=== PATIENT | male | born 1965 | race Caucasian/White ===

== ENCOUNTER 2017-02-27 16:23 | Emergency (ER) | payer OTHER ==
[2017-02-27] MEDS ORDERED: LORAZEPAM 1 MG TABLET PO ONE (17:07)
[2017-02-27] MEDS ORDERED: LIDOCAINE 1% INJ (10 MG/ML) 10 ML MDV INJ ONE (17:07)
[2017-02-27] MEDS ORDERED: CEPHALEXIN 500 MG CAPSULE PO ONE (17:07)
[2017-02-27] MEDS ORDERED: BUPIVACAINE HCL 0.5 % INJ/PF 30 ML SDV INJ ONE (17:07)
--- NOTE | 2017-02-27 17:15 | ER Document Report ---
ED Wound - General Chief Complaint: Laceration Stated Complaint: LEFT HAND INJURY Mode of Arrival: Ambulatory Information source: Patient TRAVEL OUTSIDE OF THE [place] IN LAST 30 DAYS: No - HPI Patient complains to provider of: Laceration Notes: Patient arrives with complaints of index finger laceration. Patient states he was using a table saw when he accidentally nicked his left index fingertip on the sole. Bleeding is controlled. Tetanus is up-to-date. He denies any numbness tingling or weakness. He does complain of some mild nausea. States that on his way over here he had a syncopal episode in the car. He states that this is very normal for him. He has vasovagal syncope and passes out often with any sight of blood. He denies any chest pain or shortness of breath. He states that he does not need I workup regarding his syncopal episode on the way here as this is very normal for him. He states that he has to take the next just to have his blood drawn to not pass out. Patient denies any numbness or tingling. He complains of pain. He denies any other rashes. Pain is worse with touching the area and better when not. - Related Data Allergies/Adverse Reactions: erythromycin base Allergy (Verified 02/27/17 16:27) bee stings Allergy (Uncoded 02/27/17 16:27) Past Medical History - Social History Smoking Status: Never Smoker Chew tobacco use (# tins/day): No Frequency of alcohol use: Occasional Drug Abuse: None Family History: Reviewed & Not Pertinent Patient has suicidal ideation: No Patient has homicidal ideation: No - Past Medical History Cardiac Medical History: Reports: Hx Hypertension Renal/ Medical History: Denies: Hx Peritoneal Dialysis Surgical Hx: Negative - Immunizations Hx Diphtheria, Pertussis, Tetanus Vaccination: Yes - current Review of Systems - Review of Systems -: Yes All other systems reviewed and negative Physical Exam - Vital signs Vitals: Temp Pulse Resp BP Pulse Ox 97.4 F 73 23 H 149/85 H 98 02/27/17 16:29 02/27/17 16:29 02/27/17 16:29 02/27/17 16:29 02/27/17 16:29 - Notes Notes: GENERAL: alert, cooperative, nontoxic, no distress. HEAD: normocephalic, atraumatic EYES: conjunctiva pink without discharge, no external redness or swelling. EARS: no external swelling, no external redness NOSE: atraumatic, no external swelling MOUTH/THROAT: mucous membranes moist and pink NECK: soft, supple, full range of motion, no meningismus. CHEST: no distress, lungs clear and equal throughout. No wheezing, rales, rhonchi. CARDIAC: regular rate and rhythm, no murmur, normal capillary refill, normal pulses. BACK: full range of motion, no CVA tenderness. EXTREMITIES: Patient is noted to have a macerated type laceration to the tip of his left index finger with partial injury to the nail distally. No active bleeding. Normal cap refill and sensation distally. No redness or drainage. No foreign body. No flexor or extensor tendon laceration identified. NEURO: alert and oriented 3, no focal deficits, full range of motion of all extremities. PYSCH: appropriate mood, affect. Patient is cooperative. SKIN: pink, warm, dry, no rash. Course - Re-evaluation Re-evalutation: 02/27/17 19:35 Patient is nontoxic appearing with stable vitals. The patient sustained a laceration to the index finger of the left hand with a table saw. He is neurovascularly intact. There is no foreign body or tendon laceration. X-rays are negative. Patient had laceration repaired to the best of my ability. Patient will be discharged home on antibiotics, Ultram, with no follow-up next week. Follow-up in 10-12 days for suture removal. Follow up sooner for increased pain, fever, redness, drainage, any further concerns. The patient is noted to have elevated blood pressure during today's emergency department visit. The patient was informed of this finding. The patient was instructed that this may be related to pre-hypertension and requires further evaluation with a primary care provider. The patient has no hypertensive symptoms at this time. The patient's emergency department workup and current diagnosis were explained to the patient and or family. Follow-up instructions were provided. Medications if prescribed were discussed. Instructions for when to return to the emergency department including specific worrisome symptoms were discussed with the patient and/or family. - Vital Signs Vital signs: Temp Pulse Resp BP Pulse Ox 97.4 F 73 23 H 149/85 H 98 02/27/17 16:29 02/27/17 16:29 02/27/17 16:29 02/27/17 16:29 02/27/17 16:29 - Diagnostic Test Radiology reviewed: Image reviewed, Reports reviewed - Negative Procedures - Laceration/Wound Repair left index finger Wound length (cm): 2 Wound's Depth, Shape: Superficial, Linear, Irregular, Nail-avulsed Laceration pre-procedure: Sterile PPE donned, Sterile drapes applied Anesthetic type: 0.5% Bupivacaine Volume Anesthetic (mLs): 4 Wound explored: Clean, No foreign body removed Wound Repaired With: Sutures Suture Size/Type: 5:0, Nylon Number of Sutures: 4 Layer Closure?: No Post-procedure wound care: Sterile dressing applied Post-procedure NV exam normal: Yes Complications: No Discharge - Discharge Clinical Impression: Laceration of left index finger Condition: Stable Disposition: HOME, SELF-CARE Instructions: Laceration Care ([facility]) Additional Instructions: Take medications as prescribed. Clean wound twice a day with soap and water. Follow-up with or so Week for reevaluation. Follow-up in 10-12 days for suture removal. Follow-up sooner for increased pain, fever, redness, drainage, any further concerns. Your blood pressure was elevated during today's visit. Have this rechecked with your doctor. The medication you were prescribed today may cause drowsiness. Do not drive or operate heavy machinery while taking this medication. Prescriptions: Cephalexin [Cephalexin 500 MG Capsule] 1 cap PO QID #28 capsule Tramadol HCl [Ultram] 50 mg PO TID PRN #10 tablet PRN Reason: Forms: Elevated Blood Pressure Referrals: CUBA ZAVALA PA-C [Primary Care Provider] - Follow up as needed ERICA SPEARS MD [ACTIVE STAFF] - Follow up as needed
[2017-02-27] MEDS ORDERED: LIDOCAINE 1% INJ-PF (10 MG/ML) 30 ML SDV ONE (17:26)
[2017-02-27] MEDS ORDERED: ONDANSETRON 4 MG TAB.RAPDIS PO ONE (17:52)
[2017-02-27 20:02] VITALS: BP 149/79
== END 2017-02-27 20:00 | disposition home or self-care (01) ==
LOC: ER 16:23
PROC: 0HQGXZZ Repair Left Hand Skin, External Approach (ICD-10-PCS; principal; 2017-02-27)
DX: S61.412A Laceration without foreign body of left hand, initial encounter (principal); R11.0 Nausea; R55 Syncope and collapse; W45.8XXA Other foreign body or object entering through skin, initial encounter
CPT/HCPCS: 99283; 73140; 12001; S0119

== ENCOUNTER 2020-11-14 19:25 | Inpatient (IN) | payer OTHER ==
[2020-11-14] MEDS ORDERED: ONDANSETRON 4 MG TAB.RAPDIS PO ONE (20:15)
[2020-11-14] MEDS ORDERED: HYDROCODONE/ACETAMINOPHEN 5-325 MG TABLET PO ONE (20:15)
--- NOTE | 2020-11-14 20:19 | ER Document Report ---
ED Medical Screen (RME) - General Stated Complaint: ABDOMINAL PAIN TRAVEL OUTSIDE OF THE [place] IN LAST 30 DAYS: No - HPI Notes: 11/14/20 20:17 Rapid Medical Exam HPI: 55-year-old male presents to the ER complaining of cute onset of epigastric pain and nausea vomiting after eating a meal at 5:00 tonight. Patient appears uncomfortable and in mild acute distress related to pain. He denies radiation of pain. He has had no prior abdominal surgeries. Denies alcohol or NSAID use. Normal bowel movement this morning. No change in urination. Denies fever, chills, shortness of breath, abdominal pain, chest pain Physical Exam: GENERAL: ill appearing, mild distress due to pain HEAD: Atraumatic, normocephalic. ENT: Moist mucous membranes. RESP: Respirations even and unlabored CV- Regular rate. NEURO: No focal neurological deficits. Moves all extremities spontaneously and on command. My involvement in this patients care was limited to a rapid initial assessment. A comprehensive ED assessment and evaluation of the patient, analysis of test results, treatment, and completion of the medical decision making process will be performed by other ER providers. - Related Data Allergies/Adverse Reactions: erythromycin base Allergy (Verified 02/27/17 16:27) bee stings Allergy (Uncoded 02/27/17 16:27) Past Medical History - Past Medical History Cardiac Medical History: Reports: Hx Hypertension Renal/ Medical History: Denies: Hx Peritoneal Dialysis - Immunizations Hx Diphtheria, Pertussis, Tetanus Vaccination: Yes - current Physical Exam - Vital signs Vitals: Temp Pulse BP Pulse Ox 98.1 F 72 174/102 H 91 L 11/14/20 19:32 11/14/20 19:32 11/14/20 19:32 11/14/20 19:32 Course - Vital Signs Vital signs: Temp Pulse Resp BP Pulse Ox 98.1 F 72 174/102 H 91 L 11/14/20 19:32 11/14/20 19:32 11/14/20 19:32 11/14/20 19:32
[2020-11-14 21:40] LABS: ABSOLUTE LYMPHOCYTES (AUTO) 1.3 10^3/uL (0.5-4.7); ABSOLUTE MONOCYTES (AUTO) 0.8 10^3/uL (0.1-1.4); BASOPHILS % (AUTO) 0.2 % (0-2); EOSINOPHILS % (AUTO) 0.2 % (0-6); HEMATOCRIT 43.3 % (37.9-51.0); HEMOGLOBIN 15.4 g/dL (13.5-17.0); LYMPHOCYTES % (AUTO) 7.5 % (13-45); MEAN CORPUSCULAR HEMOGLOBIN 29.9 pg (27.0-33.4); MEAN CORPUSCULAR HGB CONC 35.7 g/dL (32.0-36.0); MEAN CORPUSCULAR VOLUME 84 fl (80-97); MONOCYTES % (AUTO) 4.8 % (3-13); PLATELET COUNT 199 10^3/uL (150-450); RED BLOOD COUNT 5.17 10^6/uL (4.35-5.55); RED CELL DISTRIBUTION WIDTH 16.1 % (11.5-14.0); SEGMENTED NEUTROPHILS % (AUTO) 87.3 % (42-78); TOTAL CELLS COUNTED % (AUTO) 100 %; WHITE BLOOD COUNT 17.2 10^3/uL (4.0-10.5)
[2020-11-14] MEDS ORDERED: ONDANSETRON HCL INJ/PF 4 MG/2 ML SDV IV ONE (21:41)
[2020-11-14] MEDS ORDERED: MORPHINE SULFATE 10 MG/ML INJ IV ONE (21:41)
--- NOTE | 2020-11-14 21:45 | ER Document Report ---
ED GI/ - General Chief Complaint: Epigastric Pain Stated Complaint: ABDOMINAL PAIN Time Seen by Provider: 11/14/20 21:36 TRAVEL OUTSIDE OF THE [place] IN LAST 30 DAYS: No - HPI Notes: Patient is a 55 y/o male with a hx of HTN who presents with epigastric abdominal pain that began a few hours prior to arrival. Patient describes the pain as sharp and worsened after eating dinner tonight. He reports nausea and vomiting but denies diarrhea, fever, chest pain and abdominal pain. Patient denies any hx of abdominal surgeries. He denies alcohol and tobacco use. - Related Data Allergies/Adverse Reactions: erythromycin base Allergy (Verified 02/27/17 16:27) bee stings Allergy (Uncoded 02/27/17 16:27) Past Medical History - General Information source: Patient - Social History Smoking Status: Never Smoker Chew tobacco use (# tins/day): No Frequency of alcohol use: None Family History: Reviewed & Not Pertinent - Past Medical History Cardiac Medical History: Reports: Hx Hypertension Renal/ Medical History: Denies: Hx Peritoneal Dialysis - Immunizations Hx Diphtheria, Pertussis, Tetanus Vaccination: Yes - current Review of Systems - Review of Systems Constitutional: No symptoms reported EENT: No symptoms reported Cardiovascular: No symptoms reported Respiratory: No symptoms reported Gastrointestinal: See HPI Genitourinary: No symptoms reported Male Genitourinary: No symptoms reported Musculoskeletal: No symptoms reported Skin: No symptoms reported Hematologic/Lymphatic: No symptoms reported Neurological/Psychological: No symptoms reported Physical Exam - Vital signs Vitals: Temp Pulse BP Pulse Ox 98.1 F 72 174/102 H 91 L 11/14/20 19:32 11/14/20 19:32 11/14/20 19:32 11/14/20 19:32 - Notes Notes: PHYSICAL EXAMINATION: VITALS: Vitals reviewed. GENERAL: Ill-appearing, and in moderate distress. HEAD: Atraumatic, normocephalic. EYES: Pupils equal, round, and reactive to light, extraocular movements intact, sclera anicteric, conjunctiva are normal. ENT: Nares patent. Moist mucous membranes. Oropharynx clear without exudates. NECK: Normal range of motion, supple without lymphadenopathy. LUNGS: Breath sounds clear to auscultation bilaterally and equal. No wheezes, rales, or rhonchi. HEART: Regular, rate, and rhythm without murmurs. ABDOMEN: Soft, abdomen with normoactive bowel sounds. Epigastric and RUQ tenderness with guarding. +Irene's sign. Negative McBurney's sign. No rebound. No masses appreciated. EXTREMITIES: Normal range of motion, no pitting or edema. No cyanosis. NEUROLOGICAL: No focal neurological deficits. Moves all extremities spontaneously and on command. PSYCH: Normal mood, normal affect. SKIN: Warm, Dry, normal turgor, no rashes or lesions noted. Course - Re-evaluation Re-evalutation: Patient is a 55-year-old male with a history of hypertension who presents with right upper quadrant and epigastric pain that began earlier today. Blood pressure elevated at 174/102 with a low pulse ox of 91% on room air, however patient is in significant pain. On exam, epigastric and RUQ tenderness with guarding. +Irene's sign. Patient treated with 4 mg of morphine IV for pain. However, pain was not well controlled and 1 mg of Dilaudid was ordered. Patient reports 6 significant relief in his pain currently. CBC shows an elevated WBC of 17.2. CMP shows a normal total bilirubin of 0.7. Lipase is elevated at 11,790.1. US shows cholelithiasis with positive Irene sign and gallbladder wall thickening which is consistent with acute cholecystitis. No ductal distention. Patient's lab work and imaging are consistent with acute cholecystitis and gallstone pancreatitis. I started the patient on IV antibiotics which include Cipro 400 mg IV and Flagyl 500 mg IV. Patient has been made NPO. 11/14/20 23:19 I spoke with the on-call surgeon, Dr. Borrego, who agrees to accept the patient for surgery. He is requesting the patient be made NPO and started on D5 LR at a rate of 175 mL/hr. Patient will be admitted to the surgicalist service. I informed the patient of the plan and he understands and is in agreement. - Vital Signs Vital signs: Temp Pulse Resp BP Pulse Ox 98.6 F 71 16 166/92 H 90 L 11/15/20 03:01 11/15/20 03:01 11/15/20 03:01 11/15/20 03:01 11/15/20 03:01 - Laboratory Results Result Diagrams: 11/15/20 02:54 11/15/20 02:54 Laboratory Results Interpreted: 11/14/20 11/14/20 21:23 21:23 WBC 17.2 H RDW 16.1 H Lymph % (Auto) 7.5 L Absolute Neuts (auto) 15.0 H Seg Neutrophils % 87.3 H BUN 24 H Glucose 138 H ALT 54 H Lipase 34823.1 H Critical Laboratory Results Reviewed: No Critical Results - Radiology Results Critical Radiology Results Reviewed: No Critical Results Discharge - Discharge Clinical Impression: Acute cholecystitis, Acute gallstone pancreatitis Abdominal pain Qualifiers: Abdominal location: upper abdomen, unspecified Qualified Code(s): R10.10 - Upper abdominal pain, unspecified Condition: Stable Disposition: ADMITTED INPATIENT Admitting Provider: Surgicalist Unit Admitted: Surgical Floor
--- NOTE | 2020-11-14 21:51 | RADIOLOGY REPORT (SQ) ---
EXAM DESCRIPTION: U/S ABDOMEN COMPLETE W/O DOP RadLex: US ABDOMEN CLINICAL HISTORY: 55 years Male; epigastric pain, n/v. acute onset after eating TECHNIQUE: Abdominal ultrasound was performed. COMPARISON: None. FINDINGS: Liver: 19.7 cm long. Parenchyma is somewhat echogenic. No ductal distention. No focal lesion, as visualized Gallbladder: Cholelithiasis, including stones in the neck. Positive Irene sign. Wall is thickened, 4 mm. No pericholecystic fluid. Common bile duct: 5 mm. Pancreas: Not visualized due to overlying bowel gas Spleen: 13.7 cm long.. Portal venous flow is hepatopedal, normal. No free fluid. Right kidney: 13.2 cm long, with echogenic cortex. 2.2 cm cyst in the midportion. No hydronephrosis. Left kidney: 13 cm long. No hydronephrosis. Somewhat echogenic renal cortex.. No hydronephrosis. Aorta:Visualized portions are within normal limits. IVC: Visualized portions are within normal limits. IMPRESSION: 1. Cholelithiasis, with positive Irene's sign and gallbladder wall thickening suggesting acute cholecystitis. 2. No biliary ductal distention 3. Slightly echogenic renal cortex bilaterally. Possible medical renal disease.
[2020-11-14 22:00] LABS: ALBUMIN 4.5 g/dL (3.5-5.0); ALKALINE PHOSPHATASE 74 U/L (38-126); ANION GAP 7 (5-19); ASPARTATE AMINO TRANSFERASE 36 U/L (17-59); BILIRUBIN,DIRECT 0.2 mg/dL (0.0-0.4); BILIRUBIN,TOTAL 0.7 mg/dL (0.2-1.3); BLOOD UREA NITROGEN 24 mg/dL (7-20); CALCIUM 9.4 mg/dL (8.4-10.2); CARBON DIOXIDE 28 mmol/L (22-30); CHLORIDE 105 mmol/L (98-107); GLUCOSE 138 mg/dL (75-110); POTASSIUM 4.1 mmol/L (3.6-5.0); TOTAL PROTEIN 7.5 g/dL (6.3-8.2)
[2020-11-14] MEDS ORDERED: HYDROMORPHONE HCL INJ/PF 2 MG/ML AMPULE IV ONE (22:39)
--- NOTE | 2020-11-14 22:40 | ER Document Report ---
Doctor's Note Notes: 11/14/20 22:39 Patient's primary provider is tied up in another room during the procedure. I personally went in and evaluated the patient. I have ordered 1 mg of Dilaudid IV for patient's intractable abdominal pain. Primary provider Yelena Dodge made aware.
[2020-11-14] MEDS ORDERED: NORMAL SALINE 1000 ML 1,000 ML IV ONE (23:04)
[2020-11-14] MEDS ORDERED: CIPROFLOXACIN 400 MG/D5W RTU 400 MG/200 ML RTUPB IV ONE (23:17)
[2020-11-14] MEDS ORDERED: METRONIDAZOLE 500 MG/NS RTU 500 MG/100 ML RTUPB IV ONE (23:18)
[2020-11-15] MEDS: DEXTROSE 5%-LACTATED RINGERS 1,000 ML IV PRN ×3 (01:02→16:23)
[2020-11-15] MEDS ORDERED: KETOROLAC TROMETHAMINE INJ/PF 30 MG/1 ML SDV IV PRN (01:31)
--- NOTE | 2020-11-15 01:41 | PDOC H&P ---
History of Present Illness Admission Date/PCP: 11/15/20 00:00 Patient complains of: Abdominal pain nausea and vomiting History of Present Illness: RAVI BOLIVAR is a 55 year old male Seen in emergency department via ground rescue for acute onset postprandial abdominal pain, epigastric, associated nausea and vomiting. Patient denies history of trauma, previous episodes, diarrhea or any other constitutional symptoms. He was seen in the emergency department where he was found to have diffuse abdominal pain, tenderness, leukocytosis, elevated lipase level and gallbladder ultrasound demonstrating gallstones, and thickened gallbladder wall. Patient was provisionally diagnosed with gallstone pancreatitis. Surgery was consulted, patient was advised admission for definitive management. Past Medical History Cardiac Medical History: Reports: Hypertension Past Surgical History Past Surgical History: Reports: None Social History Information Source: Patient Smoking Status: Never Smoker Electronic Cigarette use?: No Frequency of Alcohol Use: None Hx Recreational Drug Use: No Family History Family History: None, Reviewed & Not Pertinent Parental Family History Reviewed: No Children Family History Reviewed: No Sibling(s) Family History Reviewed.: No Medication/Allergy Home Medications: Cephalexin [Cephalexin 500 MG Capsule] 1 cap PO QID #28 capsule 02/27/17 Tramadol HCl [Ultram] 50 mg PO TID PRN #10 tablet 02/27/17 Allergies/Adverse Reactions: erythromycin base Allergy (Verified 02/27/17 16:27) bee stings Allergy (Uncoded 02/27/17 16:27) Review of Systems Constitutional: ABSENT: chills, fever(s), headache(s), weight gain, weight loss Eyes: ABSENT: visual disturbances Ears: ABSENT: hearing changes Cardiovascular: ABSENT: chest pain, dyspnea on exertion, edema, orthropnea, palpitations Respiratory: ABSENT: cough, hemoptysis Gastrointestinal: PRESENT: as per HPI. ABSENT: abdominal pain, constipation, diarrhea, hematemesis, hematochezia, nausea, vomiting Musculoskeletal: ABSENT: joint swelling Integumentary: ABSENT: rash, wounds Neurological: ABSENT: abnormal gait, abnormal speech, confusion, dizziness, focal weakness, syncope Psychiatric: ABSENT: anxiety, depression, homidical ideation, suicidal ideation Endocrine: ABSENT: cold intolerance, heat intolerance, polydipsia, polyuria Hematologic/Lymphatic: ABSENT: easy bleeding, easy bruising Physical Exam Vital Signs: Temp Pulse Resp BP Pulse Ox 98.1 F 72 174/102 H 91 L 11/14/20 19:32 11/14/20 19:32 11/14/20 19:32 11/14/20 19:32 Intake & Output 11/13/20 11/14/20 11/15/20 06:59 06:59 06:59 Intake Total 1000 Balance 1000 Weight 86.636 kg General appearance: PRESENT: mild distress Head exam: PRESENT: normocephalic Eye exam: PRESENT: EOMI Mouth exam: PRESENT: dry mucosa Neck exam: PRESENT: full ROM Respiratory exam: PRESENT: clear to auscultation derek Cardiovascular exam: PRESENT: RRR Pulses: PRESENT: normal carotid pulses, normal radial pulses, normal femoral pulses, normal dorsalis pedis pul GI/Abdominal exam: PRESENT: diminished bowel sounds, other - Slightly distended, diffusely tender, with increased tenderness in the epigastric area and right upper quadrant. Mild guarding in those areas. No umbilical hernia Rectal exam: PRESENT: deferred Musculoskeletal exam: PRESENT: full ROM Neurological exam: PRESENT: oriented to person, oriented to place, oriented to time, oriented to situation Psychiatric exam: PRESENT: appropriate affect Skin exam: PRESENT: dry Results Laboratory Results: 11/14/20 21:23 11/14/20 21:23 11/14/20 11/14/20 21:23 21:23 WBC 17.2 H RBC 5.17 Hgb 15.4 Hct 43.3 MCV 84 MCH 29.9 MCHC 35.7 RDW 16.1 H Plt Count 199 Seg Neutrophils % 87.3 H Sodium 140.3 Potassium 4.1 Chloride 105 Carbon Dioxide 28 Anion Gap 7 BUN 24 H Creatinine 1.00 Est GFR ( Amer) > 60 Glucose 138 H Calcium 9.4 Total Bilirubin 0.7 AST 36 Alkaline Phosphatase 74 Total Protein 7.5 Albumin 4.5 Lipase 90895.1 H Impressions: Abdomen Ultrasound 11/14/20 20:16 IMPRESSION: 1. Cholelithiasis, with positive Irene's sign and gallbladder wall thickening suggesting acute cholecystitis. 2. No biliary ductal distention 3. Slightly echogenic renal cortex bilaterally. Possible medical renal disease. Assessment & Plan - Diagnosis (1) Acute gallstone pancreatitis Is this a current diagnosis for this admission?: Yes Plan: Impression: First episode, appears uncomplicated, but clinical picture just unfolding. Currently patient hemodynamically stable, with adequate pain control. Recommendations: 1. Admit to surgical service, keep n.p.o., IV fluids and intravenous antibiotics; check rapid Covid test 2. Repeat blood pressure; patient may require further antihypertensive management 3. Explained to patient interval cholecystectomy will be planned after acute pancreatitis subsides. Also explained to patient early pancreatitis may progress to complicated pancreatitis with multiorgan system challenges, however this transformation is unpredictable. Patient expresses understanding. 4. If patient deteriorates clinically, more aggressive intervention may be required including oxygen support, diagnostic CT scan of the abdomen and pelvis, and possible transfer to the ICU. (2) Hypertension Is this a current diagnosis for this admission?: Yes (3) Leukocytosis Is this a current diagnosis for this admission?: Yes (4) Acute cholecystitis Is this a current diagnosis for this admission?: Yes - Time Time Spent: 30 to 50 Minutes Critical Time spent with patient: 15-24 minutes Medications reviewed and adjusted accordingly: Yes Anticipated Discharge Disposition: Home, Self Care Anticipated Discharge Timeframe: To be d. - Inpatient Certification Based on my medical assessment, after consideration of the patient's comorbidities, presenting symptoms, or acuity I expect that the services needed warrant INPATIENT care.: Yes I certify that my determination is in accordance with my understanding of Medicare's requirements for reasonable and necessary INPATIENT services [42 CFR 412.3e].: Yes Medical Necessity: Need For IV Fluids, Need for Pain Control, Need for IV Antibiotics
[2020-11-15] MEDS: ONDANSETRON HCL INJ/PF 4 MG/2 ML SDV IV PRN ×3 (02:17→21:58)
[2020-11-15] MEDS ORDERED: PIPERACILLIN/TAZOBACTAM 3.375 GM VIAL IV ONE (02:49)
[2020-11-15] MEDS: PIPERACILLIN SODIUM/TAZOBACTAM 3.375 GM in NORMAL SALINE 100 ML IV SCH ×3 (03:07→18:18)
[2020-11-15 03:25] LABS: APPEARANCE,URINE SLIGHTLY-CLOUDY; BILIRUBIN,URINE NEGATIVE (NEGATIVE); COLOR,URINE YELLOW; GLUCOSE, URINE NEGATIVE (NEGATIVE); KETONES,URINE TRACE mg/dL (NEGATIVE); LEUKOCYTE ESTERASE,URINE NEGATIVE (NEGATIVE); NITRITE,URINE NEGATIVE (NEGATIVE); PROTEIN,URINE 30 mg/dL (NEGATIVE); URINE SPECIFIC GRAVITY 1.015; UROBILINOGEN,URINE NEGATIVE mg/dL (<2.0)
[2020-11-15 03:29] LABS: ANION GAP 9 (5-19); BLOOD UREA NITROGEN 22 mg/dL (7-20); CALCIUM 8.4 mg/dL (8.4-10.2); CARBON DIOXIDE 24 mmol/L (22-30); CHLORIDE 106 mmol/L (98-107); GLUCOSE 279 mg/dL (75-110); POTASSIUM 4.4 mmol/L (3.6-5.0)
[2020-11-15 03:50] LABS: HEMATOCRIT 38.4 % (37.9-51.0); HEMOGLOBIN 13.6 g/dL (13.5-17.0); MEAN CORPUSCULAR HEMOGLOBIN 29.8 pg (27.0-33.4); MEAN CORPUSCULAR HGB CONC 35.5 g/dL (32.0-36.0); MEAN CORPUSCULAR VOLUME 84 fl (80-97); PLATELET COUNT 143 10^3/uL (150-450); RED BLOOD COUNT 4.58 10^6/uL (4.35-5.55); RED CELL DISTRIBUTION WIDTH 15.8 % (11.5-14.0); WHITE BLOOD COUNT 13.6 10^3/uL (4.0-10.5)
[2020-11-15 03:52] LABS: ABSOLUTE LYMPHOCYTES# (MANUAL) 0.7 10^3/uL (0.5-4.7); ABSOLUTE MONOCYTES # (MANUAL) 0.4 10^3/uL (0.1-1.4); BASOPHILS % (MANUAL) 0 % (0-2); EOSINOPHILS % (MANUAL) 0 % (0-6); LYMPHOCYTES % (MANUAL) 5 % (13-45); MONOCYTES % (MANUAL) 3 % (3-13); SEGMENTED NEUTROPHILS % (MAN) 92 % (42-78); TOTAL CELLS COUNTED 100
[2020-11-15 03:53] LABS: ANISOCYTOSIS SLIGHT; OVALOCYTES SLIGHT; POIKILOCYTOSIS SLIGHT; TEAR DROP CELLS SLIGHT; TOXIC GRANULATION SLIGHT
[2020-11-15 03:54] LABS: PLATELET COMMENT DECREASED
[2020-11-15] MEDS ORDERED: ACETAMINOPHEN INJ/PF 1000 MG/100 ML SDV IV SCH (06:00)
[2020-11-15] MEDS: ACETAMINOPHEN 1,000 MG/100 ML RTUPB IV SCH ×4 (07:35→23:22)
[2020-11-15] MEDS: FAMOTIDINE INJ/PF 20 MG/2 ML SDV IV SCH ×2 (09:07→22:06)
[2020-11-15] MEDS: HYDROMORPHONE HCL INJ/PF 2 MG/ML AMPULE IV PRN ×4 (09:07→21:57)
[2020-11-15] MEDS ORDERED: HYDRALAZINE HCL INJ/PF 20 MG/1 ML SDV IV PRN (10:58)
[2020-11-15] MEDS: ATENOLOL 50 MG TABLET PO SCH (12:01)
[2020-11-15] MEDS: KETOROLAC TROMETHAMINE INJ/PF 30 MG/1 ML SDV IV SCH ×2 (13:17→21:57)
[2020-11-16] MEDS: DEXTROSE 5%-LACTATED RINGERS 1,000 ML IV PRN ×2 (00:27→18:21)
[2020-11-16] MEDS: HYDROMORPHONE HCL INJ/PF 2 MG/ML AMPULE IV PRN ×4 (02:11→22:10)
[2020-11-16] MEDS: PIPERACILLIN SODIUM/TAZOBACTAM 3.375 GM in NORMAL SALINE 100 ML IV SCH ×3 (02:12→17:37)
[2020-11-16] MEDS: KETOROLAC TROMETHAMINE INJ/PF 30 MG/1 ML SDV IV SCH ×3 (05:54→21:56)
[2020-11-16] MEDS: ACETAMINOPHEN 1,000 MG/100 ML RTUPB IV SCH ×3 (05:54→17:37)
[2020-11-16 06:50] LABS: HEMATOCRIT 36.9 % (37.9-51.0); MEAN CORPUSCULAR HEMOGLOBIN 30.2 pg (27.0-33.4); MEAN CORPUSCULAR HGB CONC 35.1 g/dL (32.0-36.0); MEAN CORPUSCULAR VOLUME 86 fl (80-97); PLATELET COUNT 136 10^3/uL (150-450); RED BLOOD COUNT 4.29 10^6/uL (4.35-5.55); RED CELL DISTRIBUTION WIDTH 16.2 % (11.5-14.0); WHITE BLOOD COUNT 18.8 10^3/uL (4.0-10.5)
[2020-11-16 07:02] LABS: ANION GAP 6 (5-19); BLOOD UREA NITROGEN 25 mg/dL (7-20); CALCIUM 8.2 mg/dL (8.4-10.2); CARBON DIOXIDE 30 mmol/L (22-30); CHLORIDE 104 mmol/L (98-107); GLUCOSE 170 mg/dL (75-110); POTASSIUM 4.6 mmol/L (3.6-5.0)
[2020-11-16 08:06] LABS: ABSOLUTE LYMPHOCYTES# (MANUAL) 1.3 10^3/uL (0.5-4.7); ABSOLUTE MONOCYTES # (MANUAL) 0.6 10^3/uL (0.1-1.4); BAND NEUTROPHILS % (MANUAL) 5 % (3-5); BASOPHILS % (MANUAL) 0 % (0-2); EOSINOPHILS % (MANUAL) 0 % (0-6); LYMPHOCYTES % (MANUAL) 7 % (13-45); MONOCYTES % (MANUAL) 3 % (3-13); SEGMENTED NEUTROPHILS % (MAN) 85 % (42-78); TOTAL CELLS COUNTED 100
[2020-11-16 08:07] LABS: ANISOCYTOSIS 1+; PLATELET COMMENT DECREASED
[2020-11-16] MEDS ORDERED: NORMAL SALINE 1000 ML 1,000 ML IV PRN (09:49)
--- NOTE | 2020-11-16 09:49 | PDOC PROGRESS REPORT ---
Subjective Date:: 11/16/20 Reason For Visit: GALLSTONE PANCREATITIS Patient states he feels a little better. Urine output acceptable, however still dark. Patient requiring pain medication [id number]. Had shortness of breath, low saturations, came up with nasal cannula support, but not resolved. Physical Exam Vital Signs: Temp Pulse Resp BP Pulse Ox 99.8 F 100 18 141/83 H 92 11/15/20 23:30 11/15/20 23:30 11/15/20 23:30 11/15/20 23:30 11/16/20 05:00 Intake & Output 11/15/20 11/16/20 11/17/20 06:59 06:59 06:59 Intake Total 2300 2500 Output Total 580 1100 Balance 1720 1400 Weight 92.7 kg 92.8 kg General appearance: PRESENT: no acute distress Respiratory exam: PRESENT: other - Diminished breath sounds bilaterally with increased respiratory effort GI/Abdominal exam: PRESENT: other - Abdomen remains distended, mildly tympanic. Less guarding in the epigastric region Rectal exam: PRESENT: deferred Psychiatric exam: PRESENT: appropriate affect Results Laboratory Results: 11/16/20 05:47 11/16/20 05:47 11/16/20 11/16/20 05:47 05:47 WBC 18.8 H RBC 4.29 L Hgb 13.0 L Hct 36.9 L MCV 86 MCH 30.2 MCHC 35.1 RDW 16.2 H Plt Count 136 L Seg Neutrophils % Not Reportable Sodium 139.5 Potassium 4.6 Chloride 104 Carbon Dioxide 30 Anion Gap 6 BUN 25 H Creatinine 1.26 H Est GFR ( Amer) > 60 Glucose 170 H Calcium 8.2 L Lipase 1637.2 H Impressions: Abdomen Ultrasound 11/14/20 20:16 IMPRESSION: 1. Cholelithiasis, with positive Irene's sign and gallbladder wall thickening suggesting acute cholecystitis. 2. No biliary ductal distention 3. Slightly echogenic renal cortex bilaterally. Possible medical renal disease. Assessment & Plan - Diagnosis (1) Acute gallstone pancreatitis Is this a current diagnosis for this admission?: Yes Plan: Impression: Second day hospitalization for patient with acute pancreatitis, with worsening leukocytosis, hypoxia, shortness of breath, and increased creatinine despite decreasing lipase. Concerned about pancreatitis progression. Plan: 1. Increase IV fluids 2. Obtain chest x-ray; obtain CT scan of the abdomen and pelvis with oral contrast only 3. Consult hospitalist service to assist with medical management. 4. The above discussed with patient. He understands his pancreatitis has not resolved. (2) Hypertension Is this a current diagnosis for this admission?: Yes (3) Leukocytosis Is this a current diagnosis for this admission?: Yes (4) Acute cholecystitis Is this a current diagnosis for this admission?: Yes - Time Anticipated Discharge Disposition: Home, Self Care Anticipated Discharge Timeframe: within 72 hours
--- NOTE | 2020-11-16 10:32 | RADIOLOGY REPORT (SQ) ---
EXAM DESCRIPTION: CHEST SINGLE VIEW IMAGES COMPLETED DATE/TIME: 11/16/2020 9:31 am REASON FOR STUDY: hypoxia, dyspnea COMPARISON: None. EXAM PARAMETERS: NUMBER OF VIEWS: One view. TECHNIQUE: Single frontal radiographic view of the chest acquired. RADIATION DOSE: NA LIMITATIONS: Lordotic portable film, large patient FINDINGS: LUNGS AND PLEURA: Minimal bibasilar airspace disease is present. No gross pleural effusion or pneumothorax. MEDIASTINUM AND HILAR STRUCTURES: No masses. Contour normal. HEART AND VASCULAR STRUCTURES: Mild cardiomegaly BONES: No acute findings. HARDWARE: None in the chest. OTHER: No other significant finding. IMPRESSION: Patchy bibasilar airspace disease TECHNICAL DOCUMENTATION: JOB ID: [id number] 2010 [employer]- All Rights Reserved Reading location - IP/workstation name: [id number]
[2020-11-16] MEDS: FAMOTIDINE INJ/PF 20 MG/2 ML SDV IV SCH ×2 (10:52→21:57)
[2020-11-16] MEDS: ATENOLOL 50 MG TABLET PO SCH (10:52)
[2020-11-16] MEDS ORDERED: ALBUTEROL SULFATE 0.083% NEB 2.5 MG/3 ML AMPUL NEB PRN (11:39)
[2020-11-16] MEDS: ONDANSETRON HCL INJ/PF 4 MG/2 ML SDV IV PRN ×3 (13:34→21:57)
--- NOTE | 2020-11-16 16:49 | RADIOLOGY REPORT (SQ) ---
EXAM DESCRIPTION: CT ABD/PELVIS ORAL ONLY; CT CHEST WITHOUT IMAGES COMPLETED DATE/TIME: 11/16/2020 4:27 pm; 11/16/2020 4:28 pm REASON FOR STUDY: Assess extent of pancreatitis; hypoxia, f/u CXR; atelectasis v pna COMPARISON: 11/16/2020 and 11/14/2020 TECHNIQUE: CT scan of the chest performed without intravenous contrast using helical scanning techni que. Images reviewed with lung, soft tissue and bone windows. Reconstructed coronal and sagittal MPR images reviewed. All images stored on PACS. CT scan of the abdomen and pelvis performed without intravenous contrast and withoral contrast using helical scanning technique with dynamic intravenous contrast injection. Images reviewed with lung, s oft tissue and bone windows. Reconstructed coronal and sagittal MPR images reviewed. All images sto red on PACS. All CT scanners at this facility use dose modulation, iterative reconstruction, and/or weight based d osing when appropriate to reduce radiation dose to as low as reasonably achievable (ALARA). [facility]: Dose Right [facility]: CareDose [facility]: Dose Right [facility]: Teradose 4D [facility]: Smart Money Mover RADIATION DOSE: CT Rad equipment meets quality standard of care and radiation dose reduction techniq ues were employed. CTDIvol: 13.1 - 14.1 mGy. DLP: 1304 mGy-cm. mGy. LIMITATIONS: Limited field of view on axial acquisition. FINDINGS: CHEST: AXILLAE: No adenopathy. CHEST WALL: Limited visualization. No masses. No subcutaneous emphysema. LUNGS: Dense consolidation left lower lobe, patchy airspace opacity right upper lobe much more so isauro n left upper lobe. Trace left-sided pleural effusion. No pneumothorax. PLEURA: As above. THYROID: No masses or significant asymmetry. HILAR AND MEDIASTINAL STRUCTURES: No identified masses or abnormal nodes. AORTA AND GREAT VESSELS: Ectatic appearing ascending aorta. HEART: No pericardial effusion. Three-vessel coronary artery disease is demonstrated. HARDWARE AND LIFELINES: None. BONES: No significant finding. OTHER: No other significant finding. ABDOMEN AND PELVIS: LIVER: Limited visualization. No masses. No dilated ducts. SPLEEN: Normal size. No focal lesions. PANCREAS: No focal mass. Diffuse peripancreatic inflammatory changes without focal fluid collection. GALLBLADDER: Gallstones. No inflammatory changes to suggest cholecystitis. ADRENAL GLANDS: No significant masses or asymmetry. RIGHT KIDNEY AND URETER: No solid masses. Assessment limited by lack of IV contrast. No significant c alcification. No hydronephrosis or hydroureter. LEFT KIDNEY AND URETER: No solid masses. Assessment limited by lack of IV contrast. No significant ca lcification. No hydronephrosis or hydroureter. AORTA AND VESSELS: No aneurysm. RETROPERITONEUM: No retroperitoneal adenopathy, hemorrhage or masses. APPENDIX: Normal. LARGE AND SMALL BOWEL: No dilatation. No masses. No wall thickening. ABDOMINAL WALL: Small fat containing umbilical and inguinal hernias. PERITONEAL CAVITY: No free air. No free fluid. No peritoneal implants or masses. PELVIS: No mass or free fluid. Normal bladder. BONES: No significant or acute findings. OTHER: No other significant finding. IMPRESSION: Limited by lack of intravenous contrast. 1. Multi lobar pneumonia. 2. Pancreatitis without focal fluid collection/abscess. TECHNICAL DOCUMENTATION: JOB ID: [id number] Quality ID # [id number]: Final reports with documentation of one or more dose reduction techniques (e.g., Au tomated exposure control, adjustment of the mA and/or kV according to patient size, use of iterative reconstruction technique) 2010 [employer]- All Rights Reserved Reading location - IP/workstation name: [email or web address]
[2020-11-16] MEDS ORDERED: DEXTROSE 50%-WATER 25 GM/50 ML DISP.SYRIN IV PRN ×2 (17:42)
[2020-11-16] MEDS ORDERED: GLUCAGON,HUMAN RECOMB 1 MG INJ IM PRN (17:42)
[2020-11-16] MEDS ORDERED: DEXTROSE 40% GEL 15 GM TUBE PO PRN ×2 (17:42)
--- NOTE | 2020-11-16 17:48 | PDOC CONSULTATION ---
Consultation Consult Date: 11/16/20 Attending physician:: JOE CONDE Provider Consulted: ANDRESSA DUVAL History of Present Illness Admission Date/PCP: 11/15/20 12:42 Patient complains of: dyspnea, hypoxia, abd pain, n/v History of Present Illness: RAVI BOLIVAR is a 55 year old male with a past medical history significant for hypertension and obesity who was admitted to the surgical service on 11/15/2020 with acute gallstone pancreatitis. Patient has been kept in n.p.o. status and supported with IV fluids, analgesics and antiemetics; awaiting resolution of his pancreatitis prior to proceeding to cholecystectomy. Hospital service was consulted today for hypoxia that developed overnight, along with medical management of hypertension and assistance with pain management. Patient was seen on morning rounds with his present. He was found resting in bed on supplemental oxygen via nasal cannula at 2 L/min. While in the room, I did place the patient on room air. He was slightly tachypneic but conversational and spoke in full sentences. His SPO2 did drop to 87 to 88%. He was returned to 2 L/min prior to my leaving the room. Patient reports dyspnea; relates this to abdominal girth and discomfort upon taking a deep breath. However, he is also noted increased cough and sputum production this morning that appeared to be blood-tinged. He otherwise reports abdominal discomfort, nausea, and constipation. He did have a small bowel movement after enema overnight. He states that he has been passing gas. He denies fever, chills, chest pain, palpitations. Reviewed plan of care for the day, all questions answered. Discussed plan with nursing. Past Medical History Cardiac Medical History: Reports: Hypertension Pulmonary Medical History: Denies: Asthma, Chronic Obstructive Pulmonary Disease (COPD), Respiratory Failure EENT Medical History: Reports: None Neurological Medical History: Reports: None Endocrine Medical History: Reports: Obesity Denies: Diabetes Mellitus Type 2, Hypothyroidism Malignancy Medical History: Reports: None Musculoskeltal Medical History: Reports: None Skin Medical History: Reports: None Psychiatric Medical History: Denies: Depression, Tobacco Dependency Traumatic Medical History: Reports: None Past Surgical History Past Surgical History: Reports: None Social History Information Source: Patient Lives with: Family Smoking Status: Never Smoker Cigarettes Packs Per Day: 0.5 Electronic Cigarette use?: No Number of Years Smokin Frequency of Alcohol Use: None Hx Prescription Drug Abuse: No - Advance Directive Resuscitation Status: Full Code Family History Family History: Reviewed & Not Pertinent Parental Family History Reviewed: Yes Children Family History Reviewed: Yes Sibling(s) Family History Reviewed.: Yes Medication/Allergy Home Medications: Atenolol [Tenormin 50 mg Tablet] 50 mg PO DAILY 11/15/20 Lisinopril [Prinivil 10 mg Tablet] 10 mg PO DAILY 11/15/20 Allergies/Adverse Reactions: erythromycin base Allergy (Verified 02/27/17 16:27) bee stings Allergy (Uncoded 02/27/17 16:27) Review of Systems Constitutional: ABSENT: chills, fever(s), headache(s), weight gain, weight loss Eyes: ABSENT: visual disturbances Ears: ABSENT: hearing changes Cardiovascular: ABSENT: chest pain, dyspnea on exertion, edema, orthropnea, palpitations Respiratory: PRESENT: cough, dyspnea, hemoptysis, sputum Gastrointestinal: PRESENT: abdominal pain, constipation, nausea. ABSENT: diarrhea, hematemesis, hematochezia, vomiting Genitourinary: ABSENT: dysuria, hematuria Musculoskeletal: ABSENT: joint swelling Integumentary: ABSENT: rash, wounds Neurological: ABSENT: abnormal gait, abnormal speech, confusion, dizziness, focal weakness, syncope Psychiatric: ABSENT: anxiety, depression, homidical ideation, suicidal ideation Endocrine: ABSENT: cold intolerance, heat intolerance, polydipsia, polyuria Hematologic/Lymphatic: ABSENT: easy bleeding, easy bruising Physical Exam Vital Signs: Temp Pulse Resp BP Pulse Ox 99.7 F 95 18 147/77 H 92 11/16/20 11:44 11/16/20 14:28 11/16/20 14:28 11/16/20 11:44 11/16/20 14:28 Intake & Output 11/15/20 11/16/20 11/17/20 06:59 06:59 06:59 Intake Total 2300 2500 2100 Output Total 580 1100 Balance 1720 1400 2100 Weight 92.7 kg 92.8 kg General appearance: PRESENT: no acute distress, cooperative, obese, well- developed, well-nourished Head exam: PRESENT: atraumatic, normocephalic Eye exam: PRESENT: conjunctiva pink, EOMI, PERRLA. ABSENT: scleral icterus Ear exam: PRESENT: normal external ear exam Mouth exam: PRESENT: moist, tongue midline Respiratory exam: PRESENT: rhonchi - throughout; most notable to the upper lung peters, symmetrical, other - supplemental oxygen by NC. ABSENT: chest wall tenderness, clear to auscultation derek, rales, retraction, wheezes Cardiovascular exam: PRESENT: RRR. ABSENT: diastolic murmur, rubs, systolic murmur Pulses: PRESENT: normal dorsalis pedis pul Vascular exam: PRESENT: normal capillary refill GI/Abdominal exam: PRESENT: distended, hypoactive bowel sounds, soft, tendernes s. ABSENT: guarding, mass, organolmegaly, rebound Rectal exam: PRESENT: deferred Extremities exam: PRESENT: full ROM. ABSENT: calf tenderness, clubbing, pedal edema Neurological exam: PRESENT: alert, awake, oriented to person, oriented to place, oriented to time, oriented to situation, CN II-XII grossly intact. ABSENT: m otor sensory deficit Psychiatric exam: PRESENT: anxious, appropriate affect. ABSENT: homicidal ideation, suicidal ideation Skin exam: PRESENT: dry, intact, warm. ABSENT: cyanosis, rash Results Laboratory Results: 11/16/20 05:47 11/16/20 05:47 11/16/20 11/16/20 05:47 05:47 WBC 18.8 H RBC 4.29 L Hgb 13.0 L Hct 36.9 L MCV 86 MCH 30.2 MCHC 35.1 RDW 16.2 H Plt Count 136 L Seg Neutrophils % Not Reportable Sodium 139.5 Potassium 4.6 Chloride 104 Carbon Dioxide 30 Anion Gap 6 BUN 25 H Creatinine 1.26 H Est GFR ( Amer) > 60 Glucose 170 H Calcium 8.2 L Lipase 1637.2 H Impressions: Abdomen Ultrasound 11/14/20 20:16 IMPRESSION: 1. Cholelithiasis, with positive Irene's sign and gallbladder wall thickening suggesting acute cholecystitis. 2. No biliary ductal distention 3. Slightly echogenic renal cortex bilaterally. Possible medical renal disease. Chest CT 11/16/20 00:00 IMPRESSION: Limited by lack of intravenous contrast. 1. Multi lobar pneumonia. 2. Pancreatitis without focal fluid collection/abscess. Chest X-Ray 11/16/20 00:00 IMPRESSION: Patchy bibasilar airspace disease Abdomen/Pelvis CT 11/16/20 16:30 IMPRESSION: Limited by lack of intravenous contrast. 1. Multi lobar pneumonia. 2. Pancreatitis without focal fluid collection/abscess. Assessment and Plan - Diagnosis (1) Multifocal pneumonia Is this a current diagnosis for this admission?: Yes Plan: Community-acquired versus aspiration versus viral pneumonia. Patient admitted for gallstone pancreatitis 11/15/2020. Per , he had a syncopal event at home with vomiting on day of admission. Noted to become hypoxic overnight with upward trend in WBCs. CXR showed bibasilar airspace disease. CT chest revealed multilobar pneumonia; on personal review patient patchy airspace disease especially to the right upper lobe. Consider repeat Covid testing. To that end, will check D-dimer, ferritin, CRP; note these will be increased related to his pancreatitis interpret with caution. Blood cultures negative at 24 hours Sputum cultures pending Patient is provided supplemental oxygen as needed maintain saturations greater than 89%. Patient was already receiving IV Zosyn; day #2. This would be appropriate for community-acquired and aspiration pneumonia. Add IV azithromycin. As needed nebulizer treatments. He is placed on Robitussin as needed. Pulmonary toilet is encouraged with incentive spirometer, flutter valve, early ambulation. (2) Acute gallstone pancreatitis Is this a current diagnosis for this admission?: Yes (3) Acute respiratory failure with hypoxia Is this a current diagnosis for this admission?: Yes Plan: Secondary to #1 Management as above. (4) MANNY (acute kidney injury) Is this a current diagnosis for this admission?: Yes Plan: Cr 1.26/BUN 25 Baseline 0.86 Continue generous IVF Avoid nephrotoxic medications Monitor chemistries (5) Pancreatitis Qualifiers: Chronicity: acute Acute pancreatitis complication: no infection or necrosis Is this a current diagnosis for this admission?: Yes Plan: Gallstone pancreatitis Check triglycerides and A1c NPO w/ elevated glucose; no hx of DM Start accucheks q6 w/ SSI coverage Hypoglycemia protocol in place Calcium is slightly decreased; check ionized level. Replace as needed. Consider need for upgrade to IMCU. (6) Hypertension Is this a current diagnosis for this admission?: Yes Plan: Continue home dose Atenolol Hold Lisinopril r/t MANNY As needed Hydralazine Appropriate pain control. (7) Leukocytosis Is this a current diagnosis for this admission?: Yes Plan: Secondary to #1 and 2 Trending up; 17-> 13-> 18 Blood and sputum cultures pending. Continue Zosyn; Day #2 Add Azithromycin for community acquired PNA. Follow CBC - Time Time Spent with patient: 35 or more minutes Medications reviewed and adjusted accordingly: Yes Anticipated Discharge Disposition: Home, Self Care Anticipated Discharge Timeframe: TBD
[2020-11-16] MEDS ORDERED: AZITHROMYCIN 500 MG in DEXTROSE 5%-WATER 250 ML IV SCH (18:00)
[2020-11-16] MEDS: INSULIN LISPRO 100 UNIT/ML 3 ML VIAL SUBCUT SCH (18:26)
[2020-11-16 19:16] LABS: CHOLESTEROL 116.22 mg/dL (0-200); TRIGLYCERIDES 104 mg/dL (<150)
[2020-11-16 19:26] LABS: DIRECT LDL 43 mg/dL (<100)
[2020-11-16 20:05] LABS: C-REACTIVE PROTEIN 424.4 mg/L (<10.0)
[2020-11-16] MEDS ORDERED: DOXYCYCLINE HYCLATE INJ 100 MG VIAL ONE (23:08)
[2020-11-17] MEDS: DOXYCYCLINE HYCLATE 100 MG in DEXTROSE 5%-WATER 250 ML IV SCH ×3 (00:33→23:22)
[2020-11-17] MEDS: DEXTROSE 5%-LACTATED RINGERS 1,000 ML IV PRN ×2 (00:34→11:08)
[2020-11-17] MEDS: INSULIN LISPRO 100 UNIT/ML 3 ML VIAL SUBCUT SCH ×4 (01:19→18:42)
[2020-11-17] MEDS: ONDANSETRON HCL INJ/PF 4 MG/2 ML SDV IV PRN ×4 (02:20→20:23)
[2020-11-17] MEDS: HYDROMORPHONE HCL INJ/PF 2 MG/ML AMPULE IV PRN ×3 (02:20→20:23)
[2020-11-17] MEDS: ACETAMINOPHEN 1,000 MG/100 ML RTUPB IV SCH ×4 (02:22→18:36)
[2020-11-17] MEDS: PIPERACILLIN SODIUM/TAZOBACTAM 3.375 GM in NORMAL SALINE 100 ML IV SCH ×3 (02:35→18:35)
[2020-11-17 06:37] LABS: ABSOLUTE LYMPHOCYTES (AUTO) 0.6 10^3/uL (0.5-4.7); ABSOLUTE MONOCYTES (AUTO) 0.6 10^3/uL (0.1-1.4); ABSOLUTE NEUT (AUTO) 10.3 10^3/uL (1.7-8.2); BASOPHILS % (AUTO) 0.2 % (0-2); EOSINOPHILS % (AUTO) 0.3 % (0-6); HEMATOCRIT 32.7 % (37.9-51.0); HEMOGLOBIN 11.3 g/dL (13.5-17.0); LYMPHOCYTES % (AUTO) 5.1 % (13-45); MEAN CORPUSCULAR HEMOGLOBIN 29.8 pg (27.0-33.4); MEAN CORPUSCULAR HGB CONC 34.6 g/dL (32.0-36.0); MEAN CORPUSCULAR VOLUME 86 fl (80-97); PLATELET COUNT 115 10^3/uL (150-450); RED BLOOD COUNT 3.79 10^6/uL (4.35-5.55); RED CELL DISTRIBUTION WIDTH 16.3 % (11.5-14.0); SEGMENTED NEUTROPHILS % (AUTO) 89.4 % (42-78); TOTAL CELLS COUNTED % (AUTO) 100 %; WHITE BLOOD COUNT 11.5 10^3/uL (4.0-10.5)
[2020-11-17 07:07] LABS: ALKALINE PHOSPHATASE 53 U/L (38-126); ASPARTATE AMINO TRANSFERASE 56 U/L (17-59); BILIRUBIN,DIRECT 0.7 mg/dL (0.0-0.4); BILIRUBIN,TOTAL 1.6 mg/dL (0.2-1.3); BLOOD UREA NITROGEN 22 mg/dL (7-20); CALCIUM 7.8 mg/dL (8.4-10.2); CARBON DIOXIDE 29 mmol/L (22-30); CHLORIDE 107 mmol/L (98-107); GLUCOSE 147 mg/dL (75-110); POTASSIUM 3.8 mmol/L (3.6-5.0); TOTAL PROTEIN 5.6 g/dL (6.3-8.2)
[2020-11-17] MEDS: KETOROLAC TROMETHAMINE INJ/PF 30 MG/1 ML SDV IV SCH ×3 (07:07→23:01)
[2020-11-17 07:55] LABS: ANION GAP 4 (5-19)
[2020-11-17] MEDS: ATENOLOL 50 MG TABLET PO SCH (11:06)
[2020-11-17] MEDS: FAMOTIDINE INJ/PF 20 MG/2 ML SDV IV SCH ×2 (11:07→23:00)
--- NOTE | 2020-11-17 14:05 | PDOC PROGRESS REPORT ---
Subjective Date:: 11/17/20 Reason For Visit: GALLSTONE PANCREATITIS Overall feels better, breathing better, still on nasal cannula oxygen. Limited ambulation. Voiding. Physical Exam Vital Signs: Temp Pulse Resp BP Pulse Ox 99.0 F 95 22 H 160/93 H 96 11/17/20 10:00 11/17/20 07:29 11/17/20 07:29 11/17/20 07:29 11/17/20 07:29 Intake & Output 11/16/20 11/17/20 11/18/20 06:59 06:59 06:59 Intake Total 2500 4800 200 Output Total 1100 1050 Balance 1400 3750 200 Weight 92.8 kg 92.5 kg General appearance: PRESENT: no acute distress, other - Clinically looks better. Respiratory exam: PRESENT: other - Occasional rhonchus. GI/Abdominal exam: PRESENT: other - Abdomen less distended, much softer. Results Laboratory Results: 11/17/20 05:53 11/17/20 05:53 11/16/20 11/16/20 11/17/20 18:15 18:15 05:53 WBC RBC Hgb Hct MCV MCH MCHC RDW Plt Count Seg Neutrophils % Sodium 140.3 Potassium 3.8 Chloride 107 Carbon Dioxide 29 Anion Gap 4 L BUN 22 H Creatinine 1.06 Est GFR ( Amer) > 60 Glucose 147 H Calcium 7.8 L Ferritin 423.00 Total Bilirubin 1.6 H AST 56 Alkaline Phosphatase 53 C-Reactive Protein 424.4 H Total Protein 5.6 L Albumin 3.0 L Triglycerides 104 Cholesterol 116.22 LDL Cholesterol Direct 43 VLDL Cholesterol 21.0 HDL Cholesterol 27 L Lipase 219.6 11/17/20 05:53 WBC 11.5 H RBC 3.79 L Hgb 11.3 L Hct 32.7 L MCV 86 MCH 29.8 MCHC 34.6 RDW 16.3 H Plt Count 115 L Seg Neutrophils % 89.4 H Sodium Potassium Chloride Carbon Dioxide Anion Gap BUN Creatinine Est GFR ( Amer) Glucose Calcium Ferritin Total Bilirubin AST Alkaline Phosphatase C-Reactive Protein Total Protein Albumin Triglycerides Cholesterol LDL Cholesterol Direct VLDL Cholesterol HDL Cholesterol Lipase Impressions: Abdomen Ultrasound 11/14/20 20:16 IMPRESSION: 1. Cholelithiasis, with positive Irene's sign and gallbladder wall thickening suggesting acute cholecystitis. 2. No biliary ductal distention 3. Slightly echogenic renal cortex bilaterally. Possible medical renal disease. Chest CT 11/16/20 00:00 IMPRESSION: Limited by lack of intravenous contrast. 1. Multi lobar pneumonia. 2. Pancreatitis without focal fluid collection/abscess. Chest X-Ray 11/16/20 00:00 IMPRESSION: Patchy bibasilar airspace disease Abdomen/Pelvis CT 11/16/20 16:30 IMPRESSION: Limited by lack of intravenous contrast. 1. Multi lobar pneumonia. 2. Pancreatitis without focal fluid collection/abscess. Assessment & Plan - Diagnosis (1) Acute gallstone pancreatitis Is this a current diagnosis for this admission?: Yes Plan: Impression: Clinically improved, with concomitant patient of creatinine, lipase and leukocytosis. Plan: 1. Continue vigorous pulmonary toilet, ambulation, n.p.o. 2. Patient may be ready for laparoscopic cholecystectomy tomorrow pending pulmonary status (2) Hypertension Is this a current diagnosis for this admission?: Yes (3) Leukocytosis Is this a current diagnosis for this admission?: Yes (4) Acute cholecystitis Is this a current diagnosis for this admission?: Yes - Time Anticipated Discharge Disposition: Home, Self Care Anticipated Discharge Timeframe: within 48 hours
[2020-11-17] MEDS ORDERED: DEXTROSE 5%-LACTATED RINGERS 1,000 ML IV PRN (19:27)
--- NOTE | 2020-11-17 19:28 | PDOC PROGRESS REPORT ---
Subjective Date:: 11/17/20 Subjective:: RAVI BOLIVAR is a 55 year old male with a past medical history significant for hypertension and obesity who was admitted to the surgical service on 11/15/2020 with acute gallstone pancreatitis. Patient has been kept in n.p.o. status and supported with IV fluids, analgesics and antiemetics; awaiting resolution of his pancreatitis prior to proceeding to cholecystectomy. Hospital service was consulted today for hypoxia that developed overnight, along with medical management of hypertension and assistance with pain management. Patient was seen on morning rounds with his present. He was found resting in bed on supplemental oxygen via nasal cannula at 2 L/min. The patient states that he is feeling much better today. He has had no further episodes of dyspnea or cough. He also reports that his abdominal discomfort is significantly improved. He further denies fever, chills, chest pain, palpitations, nausea, vomiting, diarrhea. Is looking forward to his possible cholecystectomy tomorrow and discharged home shortly thereafter. He has no further questions or concerns at this time. No concerns per nursing. Reason For Visit: GALLSTONE PANCREATITIS Physical Exam Vital Signs: Temp Pulse Resp BP Pulse Ox 98.7 F 73 20 138/74 H 93 11/17/20 16:19 11/17/20 16:19 11/17/20 16:19 11/17/20 16:19 11/17/20 16:19 Intake & Output 11/16/20 11/17/20 11/18/20 06:59 06:59 06:59 Intake Total 2500 4800 200 Output Total 1100 1050 350 Balance 1400 3750 -150 Weight 92.8 kg 92.5 kg General appearance: PRESENT: no acute distress, obese, well-developed, well- nourished Head exam: PRESENT: atraumatic, normocephalic Eye exam: PRESENT: conjunctiva pink, EOMI, PERRLA. ABSENT: scleral icterus Mouth exam: PRESENT: moist, tongue midline Respiratory exam: PRESENT: clear to auscultation derek, symmetrical, unlabored, other - Supplemental oxygen by nasal cannula. ABSENT: rales, rhonchi, wheezes Cardiovascular exam: PRESENT: RRR. ABSENT: diastolic murmur, rubs, systolic murmur Pulses: PRESENT: normal dorsalis pedis pul Vascular exam: PRESENT: normal capillary refill GI/Abdominal exam: PRESENT: distended, hypoactive bowel sounds, soft. ABSENT: guarding, mass, organolmegaly, rebound, tenderness Rectal exam: PRESENT: deferred Extremities exam: PRESENT: full ROM. ABSENT: calf tenderness, clubbing, pedal edema Musculoskeletal exam: PRESENT: ambulatory Neurological exam: PRESENT: alert, awake, oriented to person, oriented to place, oriented to time, oriented to situation, CN II-XII grossly intact. ABSENT: motor sensory deficit Psychiatric exam: PRESENT: appropriate affect, normal mood. ABSENT: homicidal ideation, suicidal ideation Skin exam: PRESENT: dry, intact, warm. ABSENT: cyanosis, rash Results Laboratory Results: 11/17/20 05:53 11/17/20 05:53 11/16/20 11/16/20 11/17/20 18:15 18:15 05:53 WBC RBC Hgb Hct MCV MCH MCHC RDW Plt Count Seg Neutrophils % Sodium 140.3 Potassium 3.8 Chloride 107 Carbon Dioxide 29 Anion Gap 4 L BUN 22 H Creatinine 1.06 Est GFR ( Amer) > 60 Glucose 147 H Calcium 7.8 L Ferritin 423.00 Total Bilirubin 1.6 H AST 56 Alkaline Phosphatase 53 C-Reactive Protein 424.4 H Total Protein 5.6 L Albumin 3.0 L Triglycerides 104 Cholesterol 116.22 LDL Cholesterol Direct 43 VLDL Cholesterol 21.0 HDL Cholesterol 27 L Lipase 219.6 11/17/20 05:53 WBC 11.5 H RBC 3.79 L Hgb 11.3 L Hct 32.7 L MCV 86 MCH 29.8 MCHC 34.6 RDW 16.3 H Plt Count 115 L Seg Neutrophils % 89.4 H Sodium Potassium Chloride Carbon Dioxide Anion Gap BUN Creatinine Est GFR ( Amer) Glucose Calcium Ferritin Total Bilirubin AST Alkaline Phosphatase C-Reactive Protein Total Protein Albumin Triglycerides Cholesterol LDL Cholesterol Direct VLDL Cholesterol HDL Cholesterol Lipase Impressions: Abdomen Ultrasound 11/14/20 20:16 IMPRESSION: 1. Cholelithiasis, with positive Irene's sign and gallbladder wall thickening suggesting acute cholecystitis. 2. No biliary ductal distention 3. Slightly echogenic renal cortex bilaterally. Possible medical renal disease. Chest CT 11/16/20 00:00 IMPRESSION: Limited by lack of intravenous contrast. 1. Multi lobar pneumonia. 2. Pancreatitis without focal fluid collection/abscess. Chest X-Ray 11/16/20 00:00 IMPRESSION: Patchy bibasilar airspace disease Abdomen/Pelvis CT 11/16/20 16:30 IMPRESSION: Limited by lack of intravenous contrast. 1. Multi lobar pneumonia. 2. Pancreatitis without focal fluid collection/abscess. Assessment and Plan - Diagnosis (1) Multifocal pneumonia Is this a current diagnosis for this admission?: Yes Plan: Improved; Afebrile overnight (T-max 100.6/24 hours), leukocytosis trending down, no longer with dyspnea or productive cough. Does remain on supplemental oxygen. Community-acquired versus aspiration versus viral pneumonia. Patient admitted for gallstone pancreatitis 11/15/2020. Per , he had a syncopal event at home with vomiting on day of admission. Noted to become hypoxic overnight with upward trend in WBCs. CXR showed bibasilar airspace disease. CT chest revealed multilobar pneumonia; on personal review patient patchy airspace disease especially to the right upper lobe. Consider repeat Covid testing. To that end, baseline D-dimer, ferritin, CRP; note these are increased related to his pancreatitis interpret with caution. Blood cultures negative at 48 hours Sputum cultures pending Patient is provided supplemental oxygen as needed maintain saturations greater than 89%. Patient was already receiving IV Zosyn; day #3. This would be appropriate for community-acquired and aspiration pneumonia. Continue IV doxycycline; day #1 As needed nebulizer treatments. He is placed on Robitussin as needed. Pulmonary toilet is encouraged with incentive spirometer, flutter valve, early ambulation. (2) Acute gallstone pancreatitis Is this a current diagnosis for this admission?: Yes Plan: Impression: Clinically improved, with concomitant patient of creatinine, lipase and leukocytosis. Plan: 1. Continue vigorous pulmonary toilet, ambulation, n.p.o. 2. Patient may be ready for laparoscopic cholecystectomy tomorrow pending pulmonary status (3) Acute respiratory failure with hypoxia Is this a current diagnosis for this admission?: Yes Plan: Secondary to #1 Management as above. (4) MANNY (acute kidney injury) Is this a current diagnosis for this admission?: Yes Plan: Improving; Cr 1.26/BUN 25-> 1.06/ Baseline 0.86 Continue IVF Avoid nephrotoxic medications Monitor chemistries (5) Pancreatitis Qualifiers: Chronicity: acute Acute pancreatitis complication: no infection or necrosis Is this a current diagnosis for this admission?: Yes Plan: Gallstone pancreatitis Triglycerides 104 and A1c 4.8% Lipase is now nml; 219 NPO w/ elevated glucose; no hx of DM Continue accucheks q6 w/ SSI coverage Hypoglycemia protocol in place (6) Hypertension Is this a current diagnosis for this admission?: Yes Plan: Improved. Continue home dose Atenolol Hold Lisinopril r/t MANNY As needed Hydralazine Appropriate pain control. (7) Leukocytosis Is this a current diagnosis for this admission?: Yes Plan: Secondary to #1 and 2 Trending up; 17-> 13-> 18-> Cultures and antibiotics as above. Follow CBC - Time Time Spent with patient: 25-34 minutes Medications reviewed and adjusted accordingly: Yes Anticipated Discharge Disposition: Home, Self Care Anticipated Discharge Timeframe: within 48 hours
[2020-11-18] MEDS: INSULIN LISPRO 100 UNIT/ML 3 ML VIAL SUBCUT SCH ×4 (00:13→18:21)
[2020-11-18] MEDS: HYDROMORPHONE HCL INJ/PF 2 MG/ML AMPULE IV PRN ×3 (01:28→19:46)
[2020-11-18] MEDS: ONDANSETRON HCL INJ/PF 4 MG/2 ML SDV IV PRN ×2 (01:29→19:53)
[2020-11-18] MEDS: ACETAMINOPHEN 1,000 MG/100 ML RTUPB IV SCH (01:30)
[2020-11-18] MEDS: PIPERACILLIN SODIUM/TAZOBACTAM 3.375 GM in NORMAL SALINE 100 ML IV SCH ×3 (01:30→17:36)
[2020-11-18] MEDS: KETOROLAC TROMETHAMINE INJ/PF 30 MG/1 ML SDV IV SCH ×4 (06:44→21:58)
[2020-11-18 06:59] LABS: HEMATOCRIT 30.4 % (37.9-51.0); HEMOGLOBIN 10.8 g/dL (13.5-17.0); MEAN CORPUSCULAR HEMOGLOBIN 30.4 pg (27.0-33.4); MEAN CORPUSCULAR HGB CONC 35.3 g/dL (32.0-36.0); MEAN CORPUSCULAR VOLUME 86 fl (80-97); PLATELET COUNT 140 10^3/uL (150-450); RED BLOOD COUNT 3.54 10^6/uL (4.35-5.55); RED CELL DISTRIBUTION WIDTH 15.8 % (11.5-14.0); WHITE BLOOD COUNT 10.7 10^3/uL (4.0-10.5)
[2020-11-18 07:25] LABS: ANION GAP 6 (5-19); BLOOD UREA NITROGEN 23 mg/dL (7-20); CALCIUM 8.1 mg/dL (8.4-10.2); CARBON DIOXIDE 32 mmol/L (22-30); CHLORIDE 106 mmol/L (98-107); GLUCOSE 136 mg/dL (75-110); POTASSIUM 3.7 mmol/L (3.6-5.0)
[2020-11-18] MEDS ORDERED: ROCURONIUM BROMIDE INJ 50 MG/5 ML VIAL IV ONE (08:10)
[2020-11-18] MEDS ORDERED: SUCCINYLCHOLINE CHLORIDE INJ 200 MG/10 ML VIAL ONE (08:10)
[2020-11-18] MEDS ORDERED: METOCLOPRAMIDE HCL INJ/PF 10 MG/2 ML SDV ONE (08:10)
[2020-11-18] MEDS ORDERED: ALBUTEROL SULFATE HFA (90 MCG/PUFF) 8 GM MDI IH ONE (08:10)
[2020-11-18] MEDS ORDERED: GLYCOPYRROLATE 1 MG/5 ML VIAL ONE (08:10)
[2020-11-18] MEDS ORDERED: DEXAMETHASONE SOD PHOSPHATE INJ 4 MG/1 ML VIAL ONE (08:10)
[2020-11-18] MEDS ORDERED: ONDANSETRON HCL INJ/PF 4 MG/2 ML SDV ONE (08:10)
--- NOTE | 2020-11-18 08:46 | PDOC PROGRESS REPORT ---
Subjective Date:: 11/18/20 Subjective:: 55 y/o M with biliary pancreatitis. He is much improved today. His SOB is much i mproved, as is his abdominal pain. He denies fevers, chills, nausea, vomiting, chest pain, headache, orthostasis. Reason For Visit: GALLSTONE PANCREATITIS Physical Exam Vital Signs: Temp Pulse Resp BP Pulse Ox 98.8 F 86 17 154/66 H 94 11/17/20 23:35 11/18/20 03:45 11/17/20 23:35 11/17/20 23:35 11/18/20 06:53 Intake & Output 11/17/20 11/18/20 11/19/20 06:59 06:59 06:59 Intake Total 4800 900 Output Total 1050 700 Balance 3750 200 Weight 92.5 kg 92.5 kg General appearance: PRESENT: no acute distress, cooperative Head exam: PRESENT: atraumatic, normocephalic Eye exam: PRESENT: EOMI, PERRLA. ABSENT: scleral icterus Neck exam: ABSENT: meningismus, tenderness, thyromegaly, tracheal deviation Respiratory exam: PRESENT: unlabored. ABSENT: tachypnea Cardiovascular exam: ABSENT: tachycardia Vascular exam: PRESENT: normal capillary refill GI/Abdominal exam: PRESENT: distended - mild, soft. ABSENT: rebound, rigid, tenderness Rectal exam: PRESENT: deferred Extremities exam: ABSENT: clubbing Musculoskeletal exam: ABSENT: deformity Neurological exam: PRESENT: alert, awake, oriented to person, oriented to place, oriented to time, oriented to situation Psychiatric exam: ABSENT: agitated, anxious, depressed Focused psych exam: ABSENT: delusional Skin exam: ABSENT: cyanosis, erythema, jaundice Results Laboratory Results: 11/18/20 05:52 11/18/20 05:52 11/18/20 11/18/20 05:52 05:52 WBC 10.7 H RBC 3.54 L Hgb 10.8 L Hct 30.4 L MCV 86 MCH 30.4 MCHC 35.3 RDW 15.8 H Plt Count 140 L Sodium 143.6 Potassium 3.7 Chloride 106 Carbon Dioxide 32 H Anion Gap 6 BUN 23 H Creatinine 1.10 Est GFR ( Amer) > 60 Glucose 136 H Calcium 8.1 L Impressions: Abdomen Ultrasound 11/14/20 20:16 IMPRESSION: 1. Cholelithiasis, with positive Irene's sign and gallbladder wall thickening suggesting acute cholecystitis. 2. No biliary ductal distention 3. Slightly echogenic renal cortex bilaterally. Possible medical renal disease. Chest CT 11/16/20 00:00 IMPRESSION: Limited by lack of intravenous contrast. 1. Multi lobar pneumonia. 2. Pancreatitis without focal fluid collection/abscess. Chest X-Ray 11/16/20 00:00 IMPRESSION: Patchy bibasilar airspace disease Abdomen/Pelvis CT 11/16/20 16:30 IMPRESSION: Limited by lack of intravenous contrast. 1. Multi lobar pneumonia. 2. Pancreatitis without focal fluid collection/abscess. Assessment & Plan - Diagnosis (1) Acute gallstone pancreatitis Is this a current diagnosis for this admission?: Yes - Time Anticipated Discharge Disposition: Home, Self Care Anticipated Discharge Timeframe: within 48 hours - Plan Summary Plan Summary: 55-year-old male with severe gallstone pancreatitis. Over the last several days, the patient has defervesced nicely. His abdominal pain has subsided. His lipase is much improved. Plan for cholecystectomy today. I have discussed this with him at length. Risk/benefits reviewed, informed consent obtained, and all questions answered.
[2020-11-18] MEDS: FAMOTIDINE INJ/PF 20 MG/2 ML SDV IV SCH ×2 (09:16→21:58)
[2020-11-18] MEDS: ATENOLOL 50 MG TABLET PO SCH (09:16)
[2020-11-18] MEDS: FLUTICASONE NASAL SPRAY 50 MCG/SPRY 120 SPRAY/16 GM NASL SCH (09:24)
[2020-11-18] MEDS ORDERED: HYDROMORPHONE HCL INJ/PF 2 MG/ML AMPULE ONE (09:51)
[2020-11-18] MEDS ORDERED: FENTANYL CITRATE INJ/PF 100 MCG/2 ML AMPUL ONE (09:51)
[2020-11-18] MEDS ORDERED: MIDAZOLAM 2 MG/2 ML INJ ONE (09:52)
[2020-11-18] MEDS ORDERED: EPHEDRINE SULFATE INJ 50 MG/1 ML AMPULE ONE (09:52)
[2020-11-18] MEDS ORDERED: SUGAMMADEX SODIUM 200 MG/2 ML SDV IV ONE (09:52)
[2020-11-18] MEDS ORDERED: LIDOCAINE 2% INJ (20 MG/ML) 20 ML MDV ONE (09:52)
[2020-11-18] MEDS ORDERED: PROPOFOL INJ 200 MG/20 ML VIAL IV ONE (09:52)
[2020-11-18] MEDS ORDERED: BUPIVACAINE HCL 0.25 % INJ/PF (2.5 MG/1 ML) 30 ML VIAL ONE (09:57)
[2020-11-18] MEDS: DOXYCYCLINE HYCLATE 100 MG in DEXTROSE 5%-WATER 250 ML IV SCH ×2 (12:15→21:59)
[2020-11-18] MEDS ORDERED: OXYCODONE-ACETAMINOPHEN 5-325 MG TABLET PO PRN ×2 (12:24)
[2020-11-18] MEDS ORDERED: FENTANYL CITRATE INJ/PF 100 MCG/2 ML AMPUL IV PRN ×3 (12:24)
[2020-11-18] MEDS ORDERED: MORPHINE SULFATE 10 MG/ML INJ IV PRN (12:24)
[2020-11-18] MEDS ORDERED: DIPHENHYDRAMINE HCL 50 MG/ML VIAL IV PRN (12:24)
[2020-11-18] MEDS ORDERED: PROMETHAZINE HCL INJ 25 MG/1 ML VIAL IV PRN ×2 (12:24)
[2020-11-18] MEDS ORDERED: MEPERIDINE HCL/PF INJ 25 MG/1 ML DISP.SYRIN IV PRN (12:24)
--- NOTE | 2020-11-18 13:35 | Operative Report ---
Nonrecallable Operative Report DATE OF SURGERY: 11/18/20 PREOPERATIVE DIAGNOSIS: Biliary pancreatitis POSTOPERATIVE DIAGNOSIS: 1. Biliary pancreatitis. 2. Acute cholecystitis OPERATION: Laparoscopic cholecystectomy SURGEON: ERNESTO RENDON ANESTHESIA: GA TISSUE REMOVED OR ALTERED: Gallbladder COMPLICATIONS: None apparent ESTIMATED BLOOD LOSS: 30 cc PROCEDURE: Drains/implants: 1. 15 Hungarian round Kavon drain in the right upper quadrant. 2. Surgicel in the gallbladder fossa. Procedure in detail: After informed consent was obtained, the patient was brought into the operating room and laid in the supine position. The area of the abdomen was prepped and draped in a normal sterile fashion. A supraumbilical incision was created with a 15 blade scalpel. Dissection was carried through the subcutaneous tissues using sharp and blunt dissection. The linea alba fascia was incised sharply, the abdomen was entered sharply. The balloon trocar was inserted, and pneumoperitoneum was achieved. A subxiphoid 5 mm port was then placed under direct laparoscopic visualization. 2 more 5 mm ports were placed in the right upper quadrant in similar fashion. Atraumatic graspers were placed through the 5 mm ports. The gallbladder was identified. It was tense, distended, and inflamed. It had an appearance consis tent with cholecystitis. Upon manipulation of the gallbladder, just above the infundibulum, the gallbladder was torn, spilling thick, dark bile into the abdominal cavity. Irrigation and suction was then performed, to clear the majority of the bile. Next, owing to the dense amount of inflammation, a dome down technique was felt to be prudent. The gallbladder was freed from the liver using a mixture of electrocautery, blunt dissection, and judicious amounts of sharp dissection. As the gallbladder was freed, the infundibulum was reached. The cystic artery and cystic duct were found to be in close approximation to 1 another. The gallbladder was amputated and the inside of the infundibulum was inspected. A PDS Endoloop was then used to secure the cystic duct/infundibulum junction. Once this was completed, the abdomen was copiously irrigated and suctioned with approximately 5-1/2 L of saline solution. The hilum was then inspected. There is a small amount of oozing coming from the liver bed. Surgicel was packed into the gallbladder fossa. This halted the small amount of oozing from the liver. The hilum was reinspected. It was found to be free of any leakage of blood or bile. The Surgicel was left in situ. A 15 Hungarian round Kavon drain was placed into the lateralmost 5 mm trocar. It was inserted into the gallbladder fossa. It was then sutured to the skin using 2-0 nylon suture. After this was completed, the 5 mm trochars were removed under direct laparoscopic visualization. The supraumbilical trocar was removed, and pneumoperitoneum was relieved. The supraumbilical fascia was closed using 0 Vicryl suture in [id number] fashion. The overlying skin was closed using 4-0 Vicryl Rapide suture in subcuticular fashion. Dressings were placed, and the procedure was concluded. All sponge, instrument, and needle counts were correct x2. Condition: Stable.
--- NOTE | 2020-11-18 16:36 | PDOC PROGRESS REPORT ---
Subjective Date:: 11/18/20 Subjective:: RAVI BOLIVAR is a 55 year old male with a past medical history significant for hypertension and obesity who was admitted to the surgical service on 11/15/2020 with acute gallstone pancreatitis. Patient has been kept in n.p.o. status and supported with IV fluids, analgesics and antiemetics; awaiting resolution of his pancreatitis prior to proceeding to cholecystectomy. Hospital service was consulted today for hypoxia that developed overnight, along with medical management of hypertension and assistance with pain management. Patient was seen on morning rounds with his present. He was found resting in bed on supplemental oxygen via nasal cannula at 2 L/min. The patient states that he is feeling well today. He has had no further episodes of dyspnea or cough. He also reports that his abdominal discomfort is significantly improved. Planned cholecystectomy today. He further denies fever, chills, chest pain, palpitations, nausea, vomiting, diarrhea. He has no further questions or concerns at this time. No concerns per nursing. Reason For Visit: GALLSTONE PANCREATITIS Physical Exam Vital Signs: Temp Pulse Resp BP Pulse Ox 100.1 F 84 18 157/80 H 90 L 11/18/20 15:30 11/18/20 15:30 11/18/20 15:30 11/18/20 15:30 11/18/20 15:30 Intake & Output 11/17/20 11/18/20 11/19/20 06:59 06:59 06:59 Intake Total 4800 900 2250 Output Total 1050 950 100 Balance 3750 -50 2150 Weight 92.5 kg 92.5 kg 92.5 kg General appearance: PRESENT: no acute distress, cooperative, obese, well- developed, well-nourished Head exam: PRESENT: atraumatic, normocephalic Eye exam: PRESENT: conjunctiva pink, EOMI, PERRLA. ABSENT: scleral icterus Mouth exam: PRESENT: moist, tongue midline Respiratory exam: PRESENT: clear to auscultation derek, symmetrical, unlabored, other - supplemental oxygen via NC. ABSENT: rales, rhonchi, wheezes Cardiovascular exam: PRESENT: RRR. ABSENT: diastolic murmur, rubs, systolic murmur Vascular exam: PRESENT: normal capillary refill GI/Abdominal exam: PRESENT: distended, normal bowel sounds, soft, tenderness. ABSENT: guarding, mass, organolmegaly, rebound Rectal exam: PRESENT: deferred Extremities exam: PRESENT: full ROM. ABSENT: calf tenderness, clubbing, pedal edema Musculoskeletal exam: PRESENT: ambulatory Neurological exam: PRESENT: alert, awake, oriented to person, oriented to place, oriented to time, oriented to situation, CN II-XII grossly intact. ABSENT: motor sensory deficit Psychiatric exam: PRESENT: appropriate affect, normal mood. ABSENT: homicidal ideation, suicidal ideation Skin exam: PRESENT: dry, intact, warm. ABSENT: cyanosis, rash Results Laboratory Results: 11/18/20 05:52 11/18/20 05:52 11/18/20 11/18/20 05:52 05:52 WBC 10.7 H RBC 3.54 L Hgb 10.8 L Hct 30.4 L MCV 86 MCH 30.4 MCHC 35.3 RDW 15.8 H Plt Count 140 L Sodium 143.6 Potassium 3.7 Chloride 106 Carbon Dioxide 32 H Anion Gap 6 BUN 23 H Creatinine 1.10 Est GFR ( Amer) > 60 Glucose 136 H Calcium 8.1 L Impressions: Abdomen Ultrasound 11/14/20 20:16 IMPRESSION: 1. Cholelithiasis, with positive Irene's sign and gallbladder wall thickening suggesting acute cholecystitis. 2. No biliary ductal distention 3. Slightly echogenic renal cortex bilaterally. Possible medical renal disease. Chest CT 11/16/20 00:00 IMPRESSION: Limited by lack of intravenous contrast. 1. Multi lobar pneumonia. 2. Pancreatitis without focal fluid collection/abscess. Chest X-Ray 11/16/20 00:00 IMPRESSION: Patchy bibasilar airspace disease Abdomen/Pelvis CT 11/16/20 16:30 IMPRESSION: Limited by lack of intravenous contrast. 1. Multi lobar pneumonia. 2. Pancreatitis without focal fluid collection/abscess. Assessment and Plan - Diagnosis (1) Multifocal pneumonia Is this a current diagnosis for this admission?: Yes Plan: Improved; T-max 100.6/44 hours, leukocytosis trending down, no longer with dyspnea or productive cough. Does remain on supplemental oxygen. Community-acquired versus aspiration versus viral pneumonia. Patient admitted for gallstone pancreatitis 11/15/2020. Per , he had a syncopal event at home with vomiting on day of admission. Noted to become hypoxic overnight with upward trend in WBCs. CXR showed bibasilar airspace disease. CT chest revealed multilobar pneumonia; on personal review patient patchy airspace disease especially to the right upper lobe. Consider repeat Covid testing. To that end, baseline D-dimer, ferritin, CRP; note these are increased related to his pancreatitis interpret with caution. Blood cultures negative at 72 hours Sputum cultures pending Patient is provided supplemental oxygen as needed maintain saturations greater than 89%. Patient was already receiving IV Zosyn; day #4. This would be appropriate for community-acquired and aspiration pneumonia. Continue IV doxycycline; day #2 (for aspiration/pseudomonas coverage) As needed nebulizer treatments. He is placed on Robitussin as needed. Pulmonary toilet is encouraged with incentive spirometer, flutter valve, early ambulation. (2) Acute respiratory failure with hypoxia Is this a current diagnosis for this admission?: Yes Plan: Secondary to #1 Management as above. (3) Acute gallstone pancreatitis Is this a current diagnosis for this admission?: Yes Plan: Primary plan per surgery. Cholecystectomy planned for today. (4) Pancreatitis Qualifiers: Chronicity: acute Acute pancreatitis complication: no infection or necrosis Is this a current diagnosis for this admission?: Yes Plan: Gallstone pancreatitis Triglycerides 104 and A1c 4.8% Lipase is now nml; 219 NPO w/ elevated glucose; no hx of DM Continue accucheks q6 w/ SSI coverage Hypoglycemia protocol in place (5) Hypertension Is this a current diagnosis for this admission?: Yes Plan: Improved. Continue home dose Atenolol Resume Lisinopril As needed Hydralazine Appropriate pain control. (6) Leukocytosis Is this a current diagnosis for this admission?: Yes Plan: Secondary to #1 and 2 Trending up; 17-> 13-> 18-> 10.7 Cultures and antibiotics as above. Follow CBC (7) MANNY (acute kidney injury) Is this a current diagnosis for this admission?: Yes Plan: Resolved. Cr 1.26/BUN 25-> 1.06/22 Continue IVF while npo Avoid nephrotoxic medications Monitor chemistries - Time Time Spent with patient: 15-24 minutes Medications reviewed and adjusted accordingly: Yes Anticipated Discharge Disposition: Home, Self Care Anticipated Discharge Timeframe: within 48 hours
[2020-11-18] MEDS ORDERED: ACETAMINOPHEN 325 MG TABLET PO PRN (16:43)
[2020-11-18] MEDS ORDERED: METHYLPREDNISOLONE INJ 40 MG/1 ML SDV IV STA (22:12)
[2020-11-18 22:52] LABS: ARTERIAL BLOOD BASE EXCESS 1.1 mmol/L; ARTERIAL BLOOD H2CO3 1.28 mmol/L (1.05-1.35); ARTERIAL BLOOD O2 SATURATION 91.5 % (94-98); ARTERIAL BLOOD PCO2 42.4 mmHg (35-45); ARTERIAL BLOOD PH 7.41 (7.35-7.45); ARTERIAL BLOOD PO2 61.1 mmHg (80-100); ARTERIAL BLOOD TOTAL CO2 27.3 mmol/L (23-27)
[2020-11-18 22:58] LABS: ARTERIAL BLOOD FIO2 5L
[2020-11-19] MEDS: INSULIN LISPRO 100 UNIT/ML 3 ML VIAL SUBCUT SCH ×3 (00:54→12:24)
[2020-11-19] MEDS: PIPERACILLIN SODIUM/TAZOBACTAM 3.375 GM in NORMAL SALINE 100 ML IV SCH ×3 (02:06→17:39)
--- NOTE | 2020-11-19 04:20 | RADIOLOGY REPORT (SQ) ---
EXAM DESCRIPTION: XR CHEST 1 VIEW COMPLETED DATE/TME: 11/19/2020 03:01 CLINICAL HISTORY: 55 years, Male, shortness of breath COMPARISON: 11/16/2020 chest NUMBER OF VIEWS: 1 TECHNIQUE: Portable chest LIMITATIONS: None. FINDINGS: Cardiomegaly. Low lung volumes. Worsening airspace opacities in the right upper lobe and left lung base. No pneumothorax. IMPRESSION: Worsening airspace opacities bilaterally copyright 2011 [employer]- All Rights Reserved
[2020-11-19] MEDS ORDERED: HYDROCODONE/ACETAMINOPHEN 10-325 MG TABLET PO PRN (05:44)
[2020-11-19] MEDS: KETOROLAC TROMETHAMINE INJ/PF 30 MG/1 ML SDV IV SCH ×4 (06:28→21:28)
[2020-11-19 06:34] LABS: HEMOGLOBIN 11.3 g/dL (13.5-17.0); MEAN CORPUSCULAR HEMOGLOBIN 29.5 pg (27.0-33.4); MEAN CORPUSCULAR HGB CONC 34.3 g/dL (32.0-36.0); MEAN CORPUSCULAR VOLUME 86 fl (80-97); PLATELET COUNT 172 10^3/uL (150-450); RED BLOOD COUNT 3.83 10^6/uL (4.35-5.55); RED CELL DISTRIBUTION WIDTH 16.2 % (11.5-14.0); WHITE BLOOD COUNT 10.7 10^3/uL (4.0-10.5)
[2020-11-19 07:15] LABS: ALBUMIN 3.1 g/dL (3.5-5.0); ALKALINE PHOSPHATASE 73 U/L (38-126); ANION GAP 8 (5-19); ASPARTATE AMINO TRANSFERASE 39 U/L (17-59); BILIRUBIN,DIRECT 0.6 mg/dL (0.0-0.4); BLOOD UREA NITROGEN 24 mg/dL (7-20); CALCIUM 8.1 mg/dL (8.4-10.2); CARBON DIOXIDE 30 mmol/L (22-30); CHLORIDE 104 mmol/L (98-107); GLUCOSE 157 mg/dL (75-110); POTASSIUM 3.7 mmol/L (3.6-5.0); TOTAL PROTEIN 5.7 g/dL (6.3-8.2)
--- NOTE | 2020-11-19 08:05 | PDOC PROGRESS REPORT ---
Subjective Date:: 11/19/20 Subjective:: c/o sob, improved with breathing rx did not sleep well Reason For Visit: GALLSTONE PANCREATITIS Physical Exam Vital Signs: Temp Pulse Resp BP Pulse Ox 98.7 F 77 18 172/85 H 95 11/19/20 00:16 11/19/20 00:16 11/19/20 00:16 11/19/20 00:16 11/19/20 00:16 Intake & Output 11/18/20 11/19/20 11/20/20 06:59 06:59 06:59 Intake Total 900 2600 250 Output Total 950 935 Balance -50 1665 250 Weight 92.5 kg 101 kg General appearance: PRESENT: no acute distress Head exam: PRESENT: normocephalic Eye exam: PRESENT: EOMI Ear exam: PRESENT: normal external ear exam Mouth exam: PRESENT: moist Neck exam: PRESENT: full ROM Respiratory exam: PRESENT: prolonged expiratory phas, wheezes Cardiovascular exam: PRESENT: RRR Pulses: PRESENT: normal femoral pulses, normal dorsalis pedis pul Vascular exam: PRESENT: normal capillary refill Breast: PRESENT: Normal GI/Abdominal exam: PRESENT: soft, other - drain in ruq, serous Rectal exam: PRESENT: deferred Extremities exam: PRESENT: full ROM Musculoskeletal exam: PRESENT: full ROM Neurological exam: PRESENT: alert, awake, oriented to person, oriented to place Psychiatric exam: PRESENT: appropriate affect Skin exam: PRESENT: dry Results Laboratory Results: 11/19/20 05:21 11/19/20 05:21 11/18/20 11/19/20 11/19/20 22:25 05:21 05:21 WBC 10.7 H RBC 3.83 L Hgb 11.3 L Hct 33.0 L MCV 86 MCH 29.5 MCHC 34.3 RDW 16.2 H Plt Count 172 Carbonic Acid 1.28 HCO3/H2CO3 Ratio 20:1 ABG pH 7.41 ABG pCO2 42.4 ABG pO2 61.1 L ABG HCO3 26.0 H ABG O2 Saturation 91.5 L ABG Base Excess 1.1 FiO2 5L Sodium 141.9 Potassium 3.7 Chloride 104 Carbon Dioxide 30 Anion Gap 8 BUN 24 H Creatinine 1.08 Est GFR ( Amer) > 60 Glucose 157 H Calcium 8.1 L Total Bilirubin AST Alkaline Phosphatase Total Protein Albumin 11/19/20 05:21 WBC RBC Hgb Hct MCV MCH MCHC RDW Plt Count Carbonic Acid HCO3/H2CO3 Ratio ABG pH ABG pCO2 ABG pO2 ABG HCO3 ABG O2 Saturation ABG Base Excess FiO2 Sodium Potassium Chloride Carbon Dioxide Anion Gap BUN Creatinine Est GFR ( Amer) Glucose Calcium Total Bilirubin 1.0 AST 39 Alkaline Phosphatase 73 Total Protein 5.7 L Albumin 3.1 L Impressions: Abdomen Ultrasound 11/14/20 20:16 IMPRESSION: 1. Cholelithiasis, with positive Irene's sign and gallbladder wall thickening suggesting acute cholecystitis. 2. No biliary ductal distention 3. Slightly echogenic renal cortex bilaterally. Possible medical renal disease. Chest CT 11/16/20 00:00 IMPRESSION: Limited by lack of intravenous contrast. 1. Multi lobar pneumonia. 2. Pancreatitis without focal fluid collection/abscess. Abdomen/Pelvis CT 11/16/20 16:30 IMPRESSION: Limited by lack of intravenous contrast. 1. Multi lobar pneumonia. 2. Pancreatitis without focal fluid collection/abscess. Chest X-Ray 11/19/20 00:00 IMPRESSION: Worsening airspace opacities bilaterally copyright 2011 [employer]- All Rights Reserved Assessment & Plan - Time Anticipated Discharge Disposition: Home, Self Care Anticipated Discharge Timeframe: nk - Plan Summary Plan Summary: s/p lap andrade yesterday for sever gallstone pancreatitis today, with some expiratory wheezes ? fluid overload on cxr improved iwth resp rx yesterday didnt sleep well passing flatus min abd pain plan lasix 20mg bid x 3 days hep lock iv fluids advance to full lqiuids.
[2020-11-19] MEDS: FAMOTIDINE INJ/PF 20 MG/2 ML SDV IV SCH ×2 (09:08→21:27)
[2020-11-19] MEDS: ATENOLOL 50 MG TABLET PO SCH (09:09)
[2020-11-19] MEDS: FUROSEMIDE INJ/PF 20 MG/2 ML SDV IV SCH ×2 (09:09→21:27)
[2020-11-19] MEDS: FLUTICASONE NASAL SPRAY 50 MCG/SPRY 120 SPRAY/16 GM NASL SCH (09:09)
[2020-11-19] MEDS: LISINOPRIL 10 MG TABLET PO SCH (09:10)
[2020-11-19] MEDS: DOXYCYCLINE HYCLATE 100 MG in DEXTROSE 5%-WATER 250 ML IV SCH ×2 (09:53→21:28)
[2020-11-19] MEDS ORDERED: FUROSEMIDE INJ/PF 20 MG/2 ML SDV IV SCH (10:00)
--- NOTE | 2020-11-19 10:43 | PDOC PROGRESS REPORT ---
Subjective Date:: 11/19/20 Subjective:: The patient was admitted on 11/15/2020 for pancreatitis. He underwent laparoscopic cholecystectomy yesterday. He is doing well. He did report that he had significant difficulty sleeping last night. Dr. Giron did see the patient earlier. He has had a large net positive fluid balance that appeared to be affecting his breathing. He was started on scheduled intravenous furosemide. He is currently on nasal cannula oxygen. Nursing is weaning his oxygen as tolerated since he is not on oxygen at home. Reason For Visit: GALLSTONE PANCREATITIS Physical Exam Vital Signs: Temp Pulse Resp BP Pulse Ox 97.9 F 75 19 176/83 H 95 11/19/20 08:40 11/19/20 08:40 11/19/20 08:40 11/19/20 08:40 11/19/20 08:40 Intake & Output 11/18/20 11/19/20 11/20/20 06:59 06:59 06:59 Intake Total 900 2600 250 Output Total 950 935 Balance -50 1665 250 Weight 92.5 kg 101 kg General appearance: PRESENT: cooperative, mild distress - Didn't sleep well last night, well-developed Head exam: PRESENT: atraumatic, normocephalic Ear exam: PRESENT: normal external ear exam. ABSENT: bleeding, drainage Mouth exam: PRESENT: moist, tongue midline Neck exam: PRESENT: full ROM. ABSENT: carotid bruit, lymphadenopathy Respiratory exam: PRESENT: rales - right base, symmetrical, unlabored. ABSENT: accessory muscle use, prolonged expiratory phas, rhonchi, tachypnea Cardiovascular exam: PRESENT: RRR, +S1, +S2. ABSENT: bradycardia, diastolic murmur, irregular rhythm, systolic murmur, tachycardia GI/Abdominal exam: PRESENT: soft, tenderness - Mild, other - SARAH drain in place with serosang drnge Rectal exam: PRESENT: deferred Gentrourinary exam: ABSENT: indwelling catheter Extremities exam: ABSENT: pedal edema Musculoskeletal exam: PRESENT: ambulatory, normal inspection. ABSENT: deformity, dislocation Neurological exam: PRESENT: alert, awake, oriented to person, oriented to place, oriented to time, oriented to situation, CN II-XII grossly intact. ABSENT: altered Psychiatric exam: PRESENT: appropriate affect. ABSENT: agitated, anxious Focused psych exam: ABSENT: delusional, paranoid, restlessness Skin exam: PRESENT: dry, normal color, warm. ABSENT: rash Results Laboratory Results: 11/19/20 05:21 11/19/20 05:21 11/18/20 11/19/20 11/19/20 22:25 05:21 05:21 WBC 10.7 H RBC 3.83 L Hgb 11.3 L Hct 33.0 L MCV 86 MCH 29.5 MCHC 34.3 RDW 16.2 H Plt Count 172 Carbonic Acid 1.28 HCO3/H2CO3 Ratio 20:1 ABG pH 7.41 ABG pCO2 42.4 ABG pO2 61.1 L ABG HCO3 26.0 H ABG O2 Saturation 91.5 L ABG Base Excess 1.1 FiO2 5L Sodium 141.9 Potassium 3.7 Chloride 104 Carbon Dioxide 30 Anion Gap 8 BUN 24 H Creatinine 1.08 Est GFR ( Amer) > 60 Glucose 157 H Calcium 8.1 L Total Bilirubin AST Alkaline Phosphatase Total Protein Albumin 11/19/20 05:21 WBC RBC Hgb Hct MCV MCH MCHC RDW Plt Count Carbonic Acid HCO3/H2CO3 Ratio ABG pH ABG pCO2 ABG pO2 ABG HCO3 ABG O2 Saturation ABG Base Excess FiO2 Sodium Potassium Chloride Carbon Dioxide Anion Gap BUN Creatinine Est GFR ( Amer) Glucose Calcium Total Bilirubin 1.0 AST 39 Alkaline Phosphatase 73 Total Protein 5.7 L Albumin 3.1 L 11/17/20 15:10 Sputum Gram Stain - Final 11/17/20 15:10 Sputum Sputum Culture - Final REDUCED NORMAL BENITO Impressions: Abdomen Ultrasound 11/14/20 20:16 IMPRESSION: 1. Cholelithiasis, with positive Irene's sign and gallbladder wall thickening suggesting acute cholecystitis. 2. No biliary ductal distention 3. Slightly echogenic renal cortex bilaterally. Possible medical renal disease. Chest CT 11/16/20 00:00 IMPRESSION: Limited by lack of intravenous contrast. 1. Multi lobar pneumonia. 2. Pancreatitis without focal fluid collection/abscess. Abdomen/Pelvis CT 11/16/20 16:30 IMPRESSION: Limited by lack of intravenous contrast. 1. Multi lobar pneumonia. 2. Pancreatitis without focal fluid collection/abscess. Chest X-Ray 11/19/20 00:00 IMPRESSION: Worsening airspace opacities bilaterally copyright 2011 [employer]- All Rights Reserved Assessment and Plan - Diagnosis (1) Acute gallstone pancreatitis Is this a current diagnosis for this admission?: Yes Plan: Primary plan per surgery. Cholecystectomy planned for today. 11/19/2020 Status post cholecystectomy. Doing well. Abdominal pain significantly decreased. (2) Acute respiratory failure with hypoxia Is this a current diagnosis for this admission?: Yes Plan: Secondary to #1 Management as above. 11/19/2020 Secondary to pneumonia however lately he has had a net positive fluid balance. Continue to taper oxygen to off. (3) Multifocal pneumonia Is this a current diagnosis for this admission?: Yes Plan: Improved; T-max 100.6/44 hours, leukocytosis trending down, no longer with dyspnea or productive cough. Does remain on supplemental oxygen. Community-acquired versus aspiration versus viral pneumonia. Patient admitted for gallstone pancreatitis 11/15/2020. Per , he had a syncopal event at home with vomiting on day of admission. Noted to become hypoxic overnight with upward trend in WBCs. CXR showed bibasilar airspace disease. CT chest revealed multilobar pneumonia; on personal review patient patchy airspace disease especially to the right upper lobe. Consider repeat Covid testing. To that end, baseline D-dimer, ferritin, CRP; note these are increased related to his pancreatitis interpret with caution. Blood cultures negative at 72 hours Sputum cultures pending Patient is provided supplemental oxygen as needed maintain saturations greater than 89%. Patient was already receiving IV Zosyn; day #4. This would be appropriate for community-acquired and aspiration pneumonia. Continue IV doxycycline; day #2 (for aspiration/pseudomonas coverage) As needed nebulizer treatments. He is placed on Robitussin as needed. Pulmonary toilet is encouraged with incentive spirometer, flutter valve, early ambulation. 11/19/2020 Continue doxycycline for pneumonia. Already on Zosyn for intra-abdominal process. Very broad-spectrum coverage with both antibiotics. Continue Robitussin as well as flutter valve and incentive spirometer. Encourage ambulation. (4) Hypertension Qualifiers: Hypertension type: essential hypertension Qualified Code(s): I10 - E ssential (primary) hypertension Is this a current diagnosis for this admission?: Yes Plan: Improved. Continue home dose Atenolol Resume Lisinopril As needed Hydralazine Appropriate pain control. 11/19/2020 Currently on atenolol and lisinopril. Spikes in blood pressure could be related to pain. As needed hydralazine is available. He did receive furosemide for congested breath sounds and had a 2.9 L output so far today. This should also significantly help blood pressure. We will continue to monitor and adjust medications accordingly. (5) Leukocytosis Qualifiers: Leukocytosis type: unspecified Qualified Code(s): D72.829 - Elevated white blood cell count, unspecified Is this a current diagnosis for this admission?: Yes Plan: Secondary to #1 and 2 Trending up; 17-> 13-> 18-> 10.7 Cultures and antibiotics as above. Follow CBC 11/19/2020 Blood cell count has improved significantly with treatment of pancreatitis as well as antibiotics for pneumonia. Continue to monitor. (6) MANNY (acute kidney injury) Is this a current diagnosis for this admission?: Yes Plan: Resolved. Cr 1.26/BUN 25-> 1.06/22 Continue IVF while npo Avoid nephrotoxic medications Monitor chemistries 11/19/2020 With volume overload I have discontinued the IV fluids. He will continue to take p.o. Renal function has normalized. - Time Time Spent with patient: 15-24 minutes Medications reviewed and adjusted accordingly: Yes Anticipated Discharge Disposition: Home, Self Care Anticipated Discharge Timeframe: within 72 hours
[2020-11-19] MEDS ORDERED: MELATONIN 5 MG TABLET PO SCH (22:00)
[2020-11-20] MEDS: ONDANSETRON HCL INJ/PF 4 MG/2 ML SDV IV PRN (00:56)
[2020-11-20] MEDS: HYDROMORPHONE HCL INJ/PF 2 MG/ML AMPULE IV PRN (00:58)
[2020-11-20] MEDS: PIPERACILLIN SODIUM/TAZOBACTAM 3.375 GM in NORMAL SALINE 100 ML IV SCH ×2 (01:02→09:28)
[2020-11-20] MEDS: KETOROLAC TROMETHAMINE INJ/PF 30 MG/1 ML SDV IV SCH (05:47)
[2020-11-20 07:33] LABS: BLOOD UREA NITROGEN 25 mg/dL (7-20); CALCIUM 7.9 mg/dL (8.4-10.2); CARBON DIOXIDE 33 mmol/L (22-30); GLUCOSE 140 mg/dL (75-110); POTASSIUM 3.3 mmol/L (3.6-5.0)
[2020-11-20 07:40] LABS: CHLORIDE 100 mmol/L (98-107)
[2020-11-20 07:42] LABS: ANION GAP 4 (5-19)
[2020-11-20] MEDS: FUROSEMIDE INJ/PF 20 MG/2 ML SDV IV SCH (09:29)
[2020-11-20] MEDS: LISINOPRIL 10 MG TABLET PO SCH (09:29)
[2020-11-20] MEDS: FAMOTIDINE INJ/PF 20 MG/2 ML SDV IV SCH (09:29)
[2020-11-20] MEDS: ATENOLOL 50 MG TABLET PO SCH (09:29)
[2020-11-20] MEDS: FLUTICASONE NASAL SPRAY 50 MCG/SPRY 120 SPRAY/16 GM NASL SCH (09:29)
[2020-11-20] MEDS: DOXYCYCLINE HYCLATE 100 MG in DEXTROSE 5%-WATER 250 ML IV SCH (10:56)
[2020-11-20] MEDS ORDERED: POTASSIUM CHLORIDE 10 MEQ TABLET.ER PO ONE ×2 (11:02→14:00)
--- NOTE | 2020-11-20 11:10 | PDOC PROGRESS REPORT ---
Subjective Date:: 11/20/20 Subjective:: Patient is resting comfortably. He reports that he had abdominal pain when he t wisted to clean himself after a bowel movement. He was walking around the room and slept with the head of the bed up as he believes he may have sleep apnea. Reason For Visit: GALLSTONE PANCREATITIS Physical Exam Vital Signs: Temp Pulse Resp BP Pulse Ox 98.6 F 63 20 159/78 H 99 11/19/20 23:54 11/19/20 23:54 11/19/20 23:54 11/19/20 23:54 11/19/20 23:54 Intake & Output 11/19/20 11/20/20 11/21/20 06:59 06:59 06:59 Intake Total 2600 2004 Output Total 935 2930 Balance 1665 -925 Weight 101 kg 102.6 kg 102.6 kg General appearance: PRESENT: no acute distress, cooperative, well-developed Head exam: PRESENT: atraumatic, normocephalic Eye exam: PRESENT: conjunctiva pink. ABSENT: scleral icterus Ear exam: PRESENT: normal external ear exam. ABSENT: bleeding, drainage Mouth exam: PRESENT: moist, tongue midline Respiratory exam: PRESENT: clear to auscultation derek, symmetrical, unlabored. ABSENT: accessory muscle use, rales, rhonchi, tachypnea, wheezes Cardiovascular exam: PRESENT: RRR, +S1, +S2. ABSENT: bradycardia, diastolic murmur, systolic murmur, tachycardia GI/Abdominal exam: PRESENT: normal bowel sounds, soft, tenderness - Expected postoperative tenderness, other - SARAH drain in place Rectal exam: PRESENT: deferred Gentrourinary exam: ABSENT: indwelling catheter Extremities exam: ABSENT: pedal edema Musculoskeletal exam: PRESENT: ambulatory, normal inspection. ABSENT: deformity, dislocation Neurological exam: PRESENT: alert, awake, oriented to person, oriented to place, oriented to time, oriented to situation, CN II-XII grossly intact. ABSENT: altered Psychiatric exam: PRESENT: anxious, appropriate affect. ABSENT: agitated Focused psych exam: ABSENT: delusional, paranoid, restlessness Skin exam: PRESENT: dry, normal color, warm. ABSENT: rash Results Laboratory Results: 11/19/20 05:21 11/20/20 06:10 11/20/20 06:10 Sodium 137.4 Potassium 3.3 L Chloride 100 Carbon Dioxide 33 H Anion Gap 4 L BUN 25 H Creatinine 1.10 Est GFR ( Amer) > 60 Glucose 140 H Calcium 7.9 L 11/15/20 02:54 Blood Blood Culture - Final NO GROWTH IN 5 DAYS 11/14/20 21:23 Blood Blood Culture - Final NO GROWTH IN 5 DAYS 11/17/20 15:10 Sputum Gram Stain - Final 11/17/20 15:10 Sputum Sputum Culture - Final REDUCED NORMAL BENITO Impressions: Abdomen Ultrasound 11/14/20 20:16 IMPRESSION: 1. Cholelithiasis, with positive Irene's sign and gallbladder wall thickening suggesting acute cholecystitis. 2. No biliary ductal distention 3. Slightly echogenic renal cortex bilaterally. Possible medical renal disease. Chest CT 11/16/20 00:00 IMPRESSION: Limited by lack of intravenous contrast. 1. Multi lobar pneumonia. 2. Pancreatitis without focal fluid collection/abscess. Abdomen/Pelvis CT 11/16/20 16:30 IMPRESSION: Limited by lack of intravenous contrast. 1. Multi lobar pneumonia. 2. Pancreatitis without focal fluid collection/abscess. Chest X-Ray 11/19/20 00:00 IMPRESSION: Worsening airspace opacities bilaterally copyright 2011 [employer]- All Rights Reserved Assessment and Plan - Diagnosis (1) Acute gallstone pancreatitis Is this a current diagnosis for this admission?: Yes Plan: Primary plan per surgery. Cholecystectomy planned for today. 11/19/2020 Status post cholecystectomy. Doing well. Abdominal pain significantly decreased. 11/20/2020 Stable for discharge by surgery (2) Acute respiratory failure with hypoxia Is this a current diagnosis for this admission?: Yes Plan: Secondary to #1 Management as above. 11/19/2020 Secondary to pneumonia however lately he has had a net positive fluid balance. Continue to taper oxygen to off. 11/20/2020 Lungs are actually clear. Spoke to the nurse and will have the patient ambulate on room air. He was successfully weaning yesterday and should be able to tolera te room air today. Saturations of 90% or better would be acceptable for discharge. (3) Multifocal pneumonia Is this a current diagnosis for this admission?: Yes Plan: Improved; T-max 100.6/44 hours, leukocytosis trending down, no longer with dyspnea or productive cough. Does remain on supplemental oxygen. Community-acquired versus aspiration versus viral pneumonia. Patient admitted for gallstone pancreatitis 11/15/2020. Per , he had a syncopal event at home with vomiting on day of admission. Noted to become hypoxic overnight with upward trend in WBCs. CXR showed bibasilar airspace disease. CT chest revealed multilobar pneumonia; on personal review patient patchy airspace disease especially to the right upper lobe. Consider repeat Covid testing. To that end, baseline D-dimer, ferritin, CRP; note these are increased related to his pancreatitis interpret with caution. Blood cultures negative at 72 hours Sputum cultures pending Patient is provided supplemental oxygen as needed maintain saturations greater than 89%. Patient was already receiving IV Zosyn; day #4. This would be appropriate for community-acquired and aspiration pneumonia. Continue IV doxycycline; day #2 (for aspiration/pseudomonas coverage) As needed nebulizer treatments. He is placed on Robitussin as needed. Pulmonary toilet is encouraged with incentive spirometer, flutter valve, early ambulation. 11/19/2020 Continue doxycycline for pneumonia. Already on Zosyn for intra-abdominal process. Very broad-spectrum coverage with both antibiotics. Continue Robitussin as well as flutter valve and incentive spirometer. Encourage ambulation. 11/20/2020 I would continue doxycycline for a total of [address] Duran. (4) Hypertension Qualifiers: Hypertension type: essential hypertension Qualified Code(s): I10 - Essential (primary) hypertension Is this a current diagnosis for this admission?: Yes Plan: Improved. Continue home dose Atenolol Resume Lisinopril As needed Hydralazine Appropriate pain control. 11/19/2020 Currently on atenolol and lisinopril. Spikes in blood pressure could be related to pain. As needed hydralazine is available. He did receive furosemide for congested breath sounds and had a 2.9 L output so far today. This should also significantly help blood pressure. We will continue to monitor and adjust medications accordingly. 11/20/2020 Furosemide was only transient for the volume status. He should follow up with his primary care provider for long-term hypertension management. (5) Leukocytosis Qualifiers: Leukocytosis type: unspecified Qualified Code(s): D72.829 - Elevated white blood cell count, unspecified Is this a current diagnosis for this admission?: Yes Plan: Secondary to #1 and 2 Trending up; 17-> 13-> 18-> 10.7 Cultures and antibiotics as above. Follow CBC 11/19/2020 Blood cell count has improved significantly with treatment of pancreatitis as well as antibiotics for pneumonia. Continue to monitor. (6) MANNY (acute kidney injury) Is this a current diagnosis for this admission?: Yes Plan: Resolved. Cr 1.26/BUN 25-> 1.04/22 Continue IVF while npo Avoid nephrotoxic medications Monitor chemistries 11/19/2020 With volume overload I have discontinued the IV fluids. He will continue to take p.o. Renal function has normalized. 11/20/2020 Kidney failure resolved. Responding to furosemide (7) Hypokalemia Is this a current diagnosis for this admission?: Yes Plan: 11/20/2020 Secondary to diuresis. We will give oral supplement as an inpatient. Can utilize orange juice or bananas as an outpatient. Potassium will normalize once furosemide is discontinued. Furosemide should be discontinued at the time of discharge. (8) Hypocalcemia Is this a current diagnosis for this admission?: Yes Plan: 11/20/2020 Very mild. Calcium supplement as an inpatient. Would benefit from a multivitamin as an outpatient. - Plan Summary Summary: 55-year-old male admitted with biliary pancreatitis. His pancreatitis was fairly severe, and it took several days for the patient to defervesce. Once the patient defervesced, and his abdominal pain was manageable, he was taken to the operating room for laparoscopic cholecystectomy. He was found to have acute cholecystitis, in addition to his biliary pancreatitis. The patient tolerated surgery well. Laparoscopic surgery was successful. The patient was taken to the floor in stable condition with a SARAH drain. The SARAH drain has been minimally productive. Postoperatively, the patient began tolerating clear liquid diet, then full liquid diet, then regular diet. Over the course of his stay the patient developed pneumonia, for which the hospitalist service was consulted. They started him on doxycycline 100 mg twice daily. This has been continued. His pneumonia is improving. He is saturating greater than 90% without supplemental oxygen. At this time, it is felt that he has reached maximal hospital benefit and is fit for discharge. - Time Time Spent with patient: 15-24 minutes Anticipated Discharge Disposition: Home, Self Care Anticipated Discharge Timeframe: within 24 hours
[2020-11-20] MEDS ORDERED: CALCIUM CARBONATE 600 MG TABLET PO SCH ×2 (16:00→18:00)
--- NOTE | 2020-11-20 16:00 | PDOC DISCHARGE SUMMARY ---
General - Admit/Disc Date/PCP Admission Date/Primary Care Provider: 11/15/20 12:42 Discharge Date: 11/20/20 - Discharge Diagnosis Final Diagnosis: biliary pancreatitis, acute cholecystitis - Assessment Summary: 55-year-old male admitted with biliary pancreatitis. His pancreatitis was fairly severe, and it took several days for the patient to defervesce. Once the patient defervesced, and his abdominal pain was manageable, he was taken to the operating room for laparoscopic cholecystectomy. He was found to have acute cholecystitis, in addition to his biliary pancreatitis. The patient tolerated surgery well. Laparoscopic surgery was successful. The patient was taken to the floor in stable condition with a SARAH drain. The SARAH drain has been minimally productive. Postoperatively, the patient began tolerating clear liquid diet, then full liquid diet, then regular diet. Over the course of his stay the patient developed pneumonia, for which the hospitalist service was consulted. They started him on doxycycline 100 mg twice daily. This has been continued. His pneumonia is improving. He is saturating greater than 90% without supplemental oxygen. At this time, it is felt that he has reached maximal hospital benefit and is fit for discharge. - Additional Information Resuscitation Status: Full Code Discharge Diet: As Tolerated Discharge Activity: Balance Activity w/Rest, No Lifting Over 10 Pounds, No Lifting/Push/Pulling Prescriptions: Hydrocodone/Acetaminophen [[place] 10-325 mg Tablet] 1 tab PO Q6HP PRN #14 tablet PRN Reason: For Pain Doxycycline Hyclate [Vibramycin 100 mg Tablet] 100 mg PO BID #20 tablet Home Medications: Atenolol [Tenormin 50 mg Tablet] 50 mg PO DAILY 11/15/20 Lisinopril [Prinivil 10 mg Tablet] 10 mg PO DAILY 11/15/20 Doxycycline Hyclate [Vibramycin 100 mg Tablet] 100 mg PO BID #20 tablet 11/20/20 Hydrocodone/Acetaminophen [[place] 10-325 mg Tablet] 1 tab PO Q6HP PRN #14 tablet 11/20/20 Additional Information: d/c home. Diet: as tolerated. Activity: no lifting >10 lbs x 2 weeks. F/u with Dr. Roger HUTSON on Wednesday morning. Please call for appointment. OK to showr. No tub bath, hot tubs, or swimming pools x 2 weeks. Measure and record drain output every day. History of Present Illiness History of Present Illness: RAVI BOLIVAR is a 55 year old male Physical Exam Vital Signs: Temp Pulse Resp BP Pulse Ox 99.8 F 68 17 146/63 H 90 L 11/20/20 11:31 11/20/20 11:31 11/20/20 11:31 11/20/20 11:31 11/20/20 11:31 Intake & Output 11/19/20 11/20/20 11/21/20 06:59 06:59 06:59 Intake Total 2600 2004 250 Output Total 935 2930 Balance 1665 -925 250 Weight 101 kg 102.6 kg 100.6 kg Results Laboratory Results: WBC 10.7 10^3/uL (4.0-10.5) H 11/19/20 05:21 RBC 3.83 10^6/uL (4.35-5.55) L 11/19/20 05:21 Hgb 11.3 g/dL (13.5-17.0) L 11/19/20 05:21 Hct 33.0 % (37.9-51.0) L 11/19/20 05:21 MCV 86 fl (80-97) 11/19/20 05:21 MCH 29.5 pg (27.0-33.4) 11/19/20 05:21 MCHC 34.3 g/dL (32.0-36.0) 11/19/20 05:21 RDW 16.2 % (11.5-14.0) H 11/19/20 05:21 Plt Count 172 10^3/uL (150-450) 11/19/20 05:21 Lymph % (Auto) 5.1 % (13-45) L 11/17/20 05:53 [place] % (Auto) 5.0 % (3-13) 11/17/20 05:53 Eos % (Auto) 0.3 % (0-6) 11/17/20 05:53 Baso % (Auto) 0.2 % (0-2) 11/17/20 05:53 Absolute Neuts (auto) 10.3 10^3/uL (1.7-8.2) H 11/17/20 05:53 Absolute Lymphs (auto) 0.6 10^3/uL (0.5-4.7) 11/17/20 05:53 Absolute Monos (auto) 0.6 10^3/uL (0.1-1.4) 11/17/20 05:53 Absolute Eos (auto) 0.0 10^3/uL (0.0-0.6) 11/17/20 05:53 Absolute Basos (auto) 0.0 10^3/uL (0.0-0.2) 11/17/20 05:53 Total Counted 100 11/16/20 05:47 Seg Neutrophils % 89.4 % (42-78) H 11/17/20 05:53 Seg Neuts % (Manual) 85 % (42-78) H 11/16/20 05:47 Band Neutrophils % 5 % (3-5) 11/16/20 05:47 Lymphocytes % (Manual) 7 % (13-45) L 11/16/20 05:47 Monocytes % (Manual) 3 % (3-13) 11/16/20 05:47 Eosinophils % (Manual) 0 % (0-6) 11/16/20 05:47 Basophils % (Manual) 0 % (0-2) 11/16/20 05:47 Abs Neuts (Manual) 16.9 10^3/uL (1.7-8.2) H 11/16/20 05:47 Abs Lymphs (Manual) 1.3 10^3/uL (0.5-4.7) 11/16/20 05:47 Abs Monocytes (Manual) 0.6 10^3/uL (0.1-1.4) 11/16/20 05:47 Absolute Eos (Manual) 0.0 10^3/uL (0.0-0.6) 11/16/20 05:47 Abs Basophils (Manual) 0.0 10^3/uL (0.0-0.2) 11/16/20 05:47 Toxic Granulation SLIGHT 11/15/20 02:54 Platelet Comment DECREASED 11/16/20 05:47 Poikilocytosis SLIGHT 11/15/20 02:54 Anisocytosis 1+ 11/16/20 05:47 Tear Drop Cells SLIGHT 11/15/20 02:54 Ovalocytes SLIGHT 11/15/20 02:54 D-Dimer 6.26 ug/mL (0.00-0.50) H 11/16/20 18:15 Carbonic Acid 1.28 mmol/L (1.05-1.35) 11/18/20 22:25 HCO3/H2CO3 Ratio 20:1 11/18/20 22:25 ABG pH 7.41 (7.35-7.45) 11/18/20 22:25 ABG pCO2 42.4 mmHg (35-45) 11/18/20 22:25 ABG pO2 61.1 mmHg (80-100) L 11/18/20 22:25 ABG HCO3 26.0 mmol/L (20-24) H 11/18/20 22:25 ABG Total CO2 27.3 mmol/L (23-27) H 11/18/20 22:25 ABG O2 Saturation 91.5 % (94-98) L 11/18/20 22:25 ABG Base Excess 1.1 mmol/L 11/18/20 22:25 FiO2 5L 11/18/20 22:25 Sodium 137.4 mmol/L (137-145) 11/20/20 06:10 Potassium 3.3 mmol/L (3.6-5.0) L 11/20/20 06:10 Chloride 100 mmol/L (98-107) 11/20/20 06:10 Carbon Dioxide 33 mmol/L (22-30) H 11/20/20 06:10 Anion Gap 4 (5-19) L 11/20/20 06:10 BUN 25 mg/dL (7-20) H 11/20/20 06:10 Creatinine 1.10 mg/dL (0.52-1.25) 11/20/20 06:10 Est GFR ( Amer) > 60 (>60) 11/20/20 06:10 Est GFR (MDRD) Non-Af > 60 (>60) 11/20/20 06:10 Glucose 140 mg/dL (75-110) H 11/20/20 06:10 POC Glucose 166 mg/dL (70-110) H 11/19/20 06:11 Hemoglobin A1c % 4.8 % (4.7-6.0) 11/16/20 18:15 Calcium 7.9 mg/dL (8.4-10.2) L 11/20/20 06:10 Ferritin 423.00 ng/mL (17.9-464.0) 11/16/20 18:15 Total Bilirubin 1.0 mg/dL (0.2-1.3) 11/19/20 05:21 Direct Bilirubin 0.6 mg/dL (0.0-0.4) H 11/19/20 05:21 Neonat Total Bilirubin Not Reportable 11/19/20 05:21 Neonat Direct Bilirubin Not Reportable 11/19/20 05:21 Neonat Indirect Bili Not Reportable 11/19/20 05:21 AST 39 U/L (17-59) 11/19/20 05:21 ALT 54 U/L (<50) H 11/19/20 05:21 Alkaline Phosphatase 73 U/L (38-126) 11/19/20 05:21 C-Reactive Protein 424.4 mg/L (<10.0) H 11/16/20 18:15 Total Protein 5.7 g/dL (6.3-8.2) L 11/19/20 05:21 Albumin 3.1 g/dL (3.5-5.0) L 11/19/20 05:21 Triglycerides 104 mg/dL (<150) 11/16/20 18:15 Cholesterol 116.22 mg/dL (0-200) 11/16/20 18:15 LDL Cholesterol Direct 43 mg/dL (<100) 11/16/20 18:15 VLDL Cholesterol 21.0 mg/dL (10-31) 11/16/20 18:15 HDL Cholesterol 27 mg/dL (>40) L 11/16/20 18:15 Lipase 219.6 U/L (23-300) 11/17/20 05:53 Urine Color YELLOW 11/15/20 01:13 Urine Appearance SLIGHTLY-CLOUDY 11/15/20 01:13 Urine pH 5.0 (5.0-9.0) 11/15/20 01:13 Ur Specific [place] 1.015 11/15/20 01:13 Urine Protein 30 mg/dL (NEGATIVE) H 11/15/20 01:13 Urine Glucose (UA) NEGATIVE mg/dL (NEGATIVE) 11/15/20 01:13 Urine Ketones TRACE mg/dL (NEGATIVE) H 11/15/20 01:13 Urine Blood NEGATIVE (NEGATIVE) 11/15/20 01:13 Urine Nitrite NEGATIVE (NEGATIVE) 11/15/20 01:13 Urine Bilirubin NEGATIVE (NEGATIVE) 11/15/20 01:13 Urine Urobilinogen NEGATIVE mg/dL (<2.0) 11/15/20 01:13 Ur Leukocyte Esterase NEGATIVE (NEGATIVE) 11/15/20 01:13 Urine WBC (Auto) 1 /HPF 11/15/20 01:13 Urine RBC (Auto) 1 /HPF 11/15/20 01:13 Urine Mucus (Auto) RARE /LPF 11/15/20 01:13 Urine Ascorbic Acid NEGATIVE (NEGATIVE) 11/15/20 01:13 Influenza A (RT-PCR) NEGATIVE (NEGATIVE) 11/15/20 03:27 Influenza B (RT-PCR) NEGATIVE (NEGATIVE) 11/15/20 03:27 RSV (RT-PCR) NEGATIVE (NEGATIVE) 11/15/20 03:27 SARS-CoV-2 Rap RNA(RT-PCR) NEGATIVE (NEGATIVE) 11/15/20 03:27 Impressions: Abdomen Ultrasound 11/14/20 20:16 IMPRESSION: 1. Cholelithiasis, with positive Irene's sign and gallbladder wall thickening suggesting acute cholecystitis. 2. No biliary ductal distention 3. Slightly echogenic renal cortex bilaterally. Possible medical renal disease. Chest CT 11/16/20 00:00 IMPRESSION: Limited by lack of intravenous contrast. 1. Multi lobar pneumonia. 2. Pancreatitis without focal fluid collection/abscess. Chest X-Ray 11/16/20 00:00 IMPRESSION: Patchy bibasilar airspace disease Abdomen/Pelvis CT 11/16/20 16:30 IMPRESSION: Limited by lack of intravenous contrast. 1. Multi lobar pneumonia. 2. Pancreatitis without focal fluid collection/abscess. Chest X-Ray 11/19/20 00:00 IMPRESSION: Worsening airspace opacities bilaterally copyright 2011 [employer]- All Rights Reserved
[2020-11-20 16:45] VITALS: BP 141/71
[2020-11-20] MEDS ORDERED: DOXYCYCLINE HYCLATE 100 MG TABLET PO SCH (22:00)
[2020-11-21] MEDS ORDERED: POTASSIUM CHLORIDE 10 MEQ TABLET.ER PO SCH (10:00)
== END 2020-11-20 16:59 | disposition home or self-care (01) | DRG 417 ==
LOC: ER 19:25 → INTOOBSV 11-15 → EH 11-15 → 4S 11-15 04:47 → OBSVTOIN 11-15 12:42
PROVIDERS: ADMIT Surgery; ATTEND Surgery
PROC: 0W9F40Z Drainage of Abdominal Wall with Drainage Device, Percutaneous Endoscopic Approach (ICD-10-PCS; 2020-11-18)
PROC: 0FT44ZZ Resection of Gallbladder, Percutaneous Endoscopic Approach (ICD-10-PCS; principal; 2020-11-18 11:15)
DX: K85.10 Biliary acute pancreatitis without necrosis or infection (principal); J96.01 Acute respiratory failure with hypoxia; J69.0 Pneumonitis due to inhalation of food and vomit; J12.9 Viral pneumonia, unspecified; J18.8 Other pneumonia, unspecified organism; K80.00 Calculus of gallbladder with acute cholecystitis without obstruction; N17.9 Acute kidney failure, unspecified; Z20.822 Contact with and (suspected) exposure to COVID-19; I10 Essential (primary) hypertension; E87.6 Hypokalemia; E83.51 Hypocalcemia; E66.9 Obesity, unspecified; Z79.899 Other long term (current) drug therapy; Z88.3 Allergy status to other anti-infective agents; Z91.030 Bee allergy status
CPT/HCPCS: 36415; 36600; 71045; 71250; 74176; 76700; 790; 80048; 80053; 80061; 80076; 81001; 82728; 82803; 82962; 83036; 83690; 85025; 85027; 85379; 86140; 87040; 87070; 87205; 88304; 94667; 94799; 0241U; C9803; J0131; J0330; J0744; J1100; J1170; J1815; J1885; J1940; J2250; J2270; J2405; J2543; J2704; J2765; J2920; J3010; J3490; J7030; J7050; J7060; J7121; J7613; S0028; S0119